=== PATIENT | female | born 1955 | race American Indian/Alaskan Native ===

== ENCOUNTER 2017-07-13 16:57 | Inpatient (IN) | payer OTHER ==
[2017-07-13] MEDS ORDERED: D50W (25GM) Syringe IV ONE ×5 (17:20→23:10)
[2017-07-13] MEDS ORDERED: ATROVENT IH ONE ×3 (17:30→19:59)
[2017-07-13] MEDS ORDERED: XOPENEX IH ONE ×3 (17:30→19:56)
[2017-07-13] MEDS ORDERED: LEVAQUIN PO ONE (17:31)
[2017-07-13 17:38] LABS: ISTAT Base Excess 1; ISTAT HCO3 28.3; ISTAT PCO2 63.7 (35-45); ISTAT PH 7.255 (7.35-7.45); ISTAT PO2 552 (80-105); ISTAT SO2 100; ISTAT TCO2 30
--- NOTE | 2017-07-13 17:39 | Emergency Department Report ---
ED Altered Mental Status HPI - General Stated Complaint: HYPERGLYCEMIC Time Seen by Provider: 07/13/17 17:30 Source: family, EMS Mode of arrival: Stretcher Limitations: Altered Mental Status - History of Present Illness Initial Comments: The patient is 62 years old female history of diabetes,asthma,coronary artery disease, status post CABG brought into the ER by EMS after patient was found unresponsive by the family. Family checked blood sugar and it was 34 and a started forcing fluids into the patient's, when the EMS get to the patient her blood glucose was 46, she received dextrose 50,she started responding. EMS report Diminished breath sounds on both sides, diffuse wheezing she was given albuterol treatments with little improvement. The patient arrived in the ER she is unresponsive with a blood sugars of 25 and dextrose 50 was given patient started working up and respond to commands so she started on BiPAP. but became unresponsive again and then patient intubated. MD Complaint: altered mental status, decreased responsiveness -: Sudden Severity: severe Consistency of Symptoms: constant Treatments Prior to Arrival: glucose, oxygen - Related Data Allergies Allergy/AdvReac Type Severity Reaction Status Date / Time Penicillins Allergy Anaphylaxis Verified 07/13/17 17:23 ED Review of Systems ROS: Stated complaint: HYPERGLYCEMIC Other details as noted in HPI Comment: Unobtainable due to pts medical conditions ED Past Medical Hx - Past Medical History Hx Hypertension: Yes Hx Heart Attack/AMI: Yes Hx Diabetes: Yes - Social History Smoking Status: Current Every Day Smoker Substance Use Type: None ED Physical Exam - General Limitations: Altered Mental Status General appearance: obtunded - Head Head exam: Present: atraumatic, normocephalic - Eye Eye exam: Present: normal appearance Pupils: Present: normal accommodation - ENT ENT exam: Present: normal exam, normal orophraynx - Neck Neck exam: Present: normal inspection. Absent: tenderness, meningismus - Respiratory Respiratory exam: Present: respiratory distress, wheezes, rales, rhonchi, decreased breath sounds, prolonged expiratory. Absent: stridor - Cardiovascular Cardiovascular Exam: Present: tachycardia - GI/Abdominal GI/Abdominal exam: Present: soft. Absent: distended, tenderness, guarding, rebound, mass, bruit, pulsatile mass - Extremities Exam Extremities exam: Present: normal inspection, normal capillary refill - Back Exam Back exam: Present: normal inspection. Absent: CVA tenderness (R), CVA tenderness (L) - Neurological Exam Neurological exam: Present: altered - Skin Skin exam: Present: warm, intact ED Course Vital Signs 07/13/17 07/13/17 07/13/17 17:22 17:23 17:30 Temperature Pulse Rate 113 H 107 H 105 H Pulse Rate [ Anterior Bilateral Throughout] Respiratory 17 13 Rate Respiratory Rate [Anterior Bilateral Throughout] Blood Pressure 102/69 102/69 Blood Pressure [Right] O2 Sat by Pulse 100 Oximetry 07/13/17 07/13/17 07/13/17 17:33 17:40 17:46 Temperature Pulse Rate 104 H 101 H 104 H Pulse Rate [ Anterior Bilateral Throughout] Respiratory 20 21 9 L Rate Respiratory Rate [Anterior Bilateral Throughout] Blood Pressure 116/74 116/74 116/74 Blood Pressure [Right] O2 Sat by Pulse 99 100 Oximetry 07/13/17 07/13/17 07/13/17 17:55 18:00 18:11 Temperature Pulse Rate 115 H 118 H Pulse Rate [ 101 H Anterior Bilateral Throughout] Respiratory 19 Rate Respiratory 21 Rate [Anterior Bilateral Throughout] Blood Pressure 116/74 228/101 Blood Pressure [Right] O2 Sat by Pulse 91 100 Oximetry 07/13/17 07/13/17 07/13/17 18:16 18:30 18:45 Temperature Pulse Rate 119 H 114 H 107 H Pulse Rate [ Anterior Bilateral Throughout] Respiratory 21 19 21 Rate Respiratory Rate [Anterior Bilateral Throughout] Blood Pressure 228/101 144/77 124/69 Blood Pressure [Right] O2 Sat by Pulse 100 100 100 Oximetry 07/13/17 07/13/17 07/13/17 18:50 19:04 19:15 Temperature Pulse Rate 106 H 123 H 104 H Pulse Rate [ Anterior Bilateral Throughout] Respiratory 20 20 20 Rate Respiratory Rate [Anterior Bilateral Throughout] Blood Pressure 116/74 120/75 Blood Pressure 124/69 [Right] O2 Sat by Pulse 100 100 Oximetry 07/13/17 07/13/17 07/13/17 19:30 19:45 20:00 Temperature 98.9 F Pulse Rate 102 H 101 H 113 H Pulse Rate [ Anterior Bilateral Throughout] Respiratory 19 20 16 Rate Respiratory Rate [Anterior Bilateral Throughout] Blood Pressure 125/78 123/79 123/79 Blood Pressure [Right] O2 Sat by Pulse 100 Oximetry 07/13/17 07/13/17 07/13/17 20:09 20:15 20:30 Temperature Pulse Rate 105 H 104 H 112 H Pulse Rate [ Anterior Bilateral Throughout] Respiratory 20 15 Rate Respiratory Rate [Anterior Bilateral Throughout] Blood Pressure 140/79 137/82 136/92 Blood Pressure [Right] O2 Sat by Pulse 100 100 Oximetry 07/13/17 07/13/17 07/13/17 20:45 21:00 21:15 Temperature Pulse Rate 103 H 110 H 104 H Pulse Rate [ Anterior Bilateral Throughout] Respiratory 20 21 19 Rate Respiratory Rate [Anterior Bilateral Throughout] Blood Pressure 132/90 152/92 150/89 Blood Pressure [Right] O2 Sat by Pulse 100 96 100 Oximetry 07/13/17 07/13/17 07/13/17 21:30 21:45 22:00 Temperature Pulse Rate 100 H 98 H 97 H Pulse Rate [ Anterior Bilateral Throughout] Respiratory 20 20 20 Rate Respiratory Rate [Anterior Bilateral Throughout] Blood Pressure 142/85 129/81 122/77 Blood Pressure [Right] O2 Sat by Pulse 100 Oximetry 07/13/17 07/13/17 07/13/17 22:15 22:30 22:45 Temperature Pulse Rate 98 H 98 H 97 H Pulse Rate [ Anterior Bilateral Throughout] Respiratory 20 20 20 Rate Respiratory Rate [Anterior Bilateral Throughout] Blood Pressure 118/77 117/80 122/80 Blood Pressure [Right] O2 Sat by Pulse Oximetry 07/13/17 07/13/17 07/13/17 23:00 23:15 23:30 Temperature Pulse Rate 96 H 91 H 94 H Pulse Rate [ Anterior Bilateral Throughout] Respiratory 20 20 20 Rate Respiratory Rate [Anterior Bilateral Throughout] Blood Pressure 119/81 136/80 146/87 Blood Pressure [Right] O2 Sat by Pulse 100 100 Oximetry 07/13/17 07/13/17 07/13/17 23:45 23:46 23:52 Temperature 98.7 F Pulse Rate 95 H 93 H Pulse Rate [ Anterior Bilateral Throughout] Respiratory 19 Rate Respiratory Rate [Anterior Bilateral Throughout] Blood Pressure 138/85 138/85 Blood Pressure [Right] O2 Sat by Pulse 100 100 Oximetry 07/14/17 00:00 Temperature Pulse Rate 95 H Pulse Rate [ Anterior Bilateral Throughout] Respiratory 20 Rate Respiratory Rate [Anterior Bilateral Throughout] Blood Pressure 136/85 Blood Pressure [Right] O2 Sat by Pulse Oximetry - Reevaluation(s) Reevaluation #1: 07/13/17 18:06 Patient became unresponsive with a blood sugar of 334 decision to intubate was made.intubation at 18:02 Reevaluation #2: 07/13/17 19:[address] Astudillo for admission - Intubation Time Out Performed: Yes Sedative: Etomidate Paralytic: Succinylcholine Laryngoscope: Alonso Size: 4 Assist Device Used: Bougie ET Tube Size: 8.5 Tube Secured Location: lips Tube Placement Confirmation: equal breath sounds bilat, no breath sounds over epi, confirmation by capnometr Patient Tolerated Procedure: well Intubation Complications: difficult intubation - Lab Data Result diagrams: 07/13/17 18:38 07/13/17 18:38 Lab Results 07/13/17 07/13/17 07/13/17 Range/Units 17:24 17:35 17:49 WBC (4.5-11.0) K/mm3 RBC (3.65-5.03) M/mm3 Hgb (10.1-14.3) gm/dl Hct (30.3-42.9) % MCV (79-97) fl MCH (28-32) pg MCHC (30-34) % RDW (13.2-15.2) % Plt Count (140-440) K/mm3 Add Manual Diff Total Counted Seg Neuts % (Manual) (40.0-70.0) % Band Neutrophils % % Lymphocytes % (Manual) (13.4-35.0) % Reactive Lymphs % (Man) % Monocytes % (Manual) (0.0-7.3) % Eosinophils % (Manual) (0.0-4.3) % Basophils % (Manual) (0.0-1.8) % Metamyelocytes % % Myelocytes % % Promyelocytes % % Blast Cells % % Nucleated RBC % Seg Neutrophils # Man (1.8-7.7) K/mm3 Band Neutrophils # K/mm3 Lymphocytes # (Manual) (1.2-5.4) K/mm3 Abs React Lymphs (Man) K/mm3 Monocytes # (Manual) (0.0-0.8) K/mm3 Eosinophils # (Manual) (0.0-0.4) K/mm3 Basophils # (Manual) (0.0-0.1) K/mm3 Metamyelocytes # K/mm3 Myelocytes # K/mm3 Promyelocytes # K/mm3 Blast Cells # K/mm3 WBC Morphology Hypersegmented Neuts Hyposegmented Neuts Hypogranular Neuts Smudge Cells Toxic Granulation Toxic Vacuolation Dohle Bodies Pelger-Huet Anomaly Martha Rods Platelet Estimate Clumped Platelets Plt Clumps, EDTA Large Platelets Giant Platelets Platelet Satelliting Plt Morphology Comment RBC Morphology Dimorphic RBCs Polychromasia Hypochromasia Poikilocytosis Anisocytosis Microcytosis Macrocytosis Spherocytes Pappenheimer Bodies Sickle Cells Target Cells Tear Drop Cells Ovalocytes Helmet Cells [place] Bodies [place] Lupe Cells Bite Cells Crenated Cell Elliptocytes Acanthocytes (Spur) Rouleaux Hemoglobin C Crystals Schistocytes Malaria parasites Daniel Bodies Hem Pathologist Commnt PT (12.2-14.9) Sec. INR (0.87-1.13) APTT (24.2-36.6) Sec. D-Dimer (0-234) ng/mlDDU POC ABG pH 7.255 L (7.35-7.45) POC ABG pCO2 63.7 H (35-45) POC ABG pO2 552 H (80-105) POC ABG HCO3 28.3 POC ABG Total CO2 30 POC ABG O2 Sat 100 POC ABG Base Excess 1 FiO2 100 % Sodium (137-145) mmol/L Potassium (3.6-5.0) mmol/L Chloride (98-107) mmol/L Carbon Dioxide (22-30) mmol/L Anion Gap mmol/L BUN (7-17) mg/dL Creatinine (0.7-1.2) mg/dL Estimated GFR ml/min BUN/Creatinine Ratio % Glucose (65-100) mg/dL POC Glucose < 40 L 334 H (70-105) Lactic Acid (0.7-2.0) mmol/L Calcium (8.4-10.2) mg/dL Total Bilirubin (0.1-1.2) mg/dL AST (5-40) units/L ALT (7-56) units/L Alkaline Phosphatase (35-129) units/L Troponin T (0.00-0.029) ng/mL Total Protein (6.3-8.2) g/dL Albumin (3.9-5) g/dL Albumin/Globulin Ratio % Urine Color (Yellow) Urine Turbidity (Clear) Urine pH (5.0-7.0) Ur Specific [place] (1.003-1.030) Urine Protein (Negative) mg/dL Urine Glucose (UA) (Negative) mg/dL Urine Ketones (Negative) mg/dL Urine Blood (Negative) Urine Nitrite (Negative) Urine Bilirubin (Negative) Urine Urobilinogen (<2.0) mg/dL Ur Leukocyte Esterase (Negative) Urine WBC (Auto) (0.0-6.0) /HPF Urine RBC (Auto) (0.0-6.0) /HPF 07/13/17 07/13/17 07/13/17 Range/Units 18:30 18:30 18:38 WBC (4.5-11.0) K/mm3 RBC (3.65-5.03) M/mm3 Hgb (10.1-14.3) gm/dl Hct (30.3-42.9) % MCV (79-97) fl MCH (28-32) pg MCHC (30-34) % RDW (13.2-15.2) % Plt Count (140-440) K/mm3 Add Manual Diff Total Counted Seg Neuts % (Manual) (40.0-70.0) % Band Neutrophils % % Lymphocytes % (Manual) (13.4-35.0) % Reactive Lymphs % (Man) % Monocytes % (Manual) (0.0-7.3) % Eosinophils % (Manual) (0.0-4.3) % Basophils % (Manual) (0.0-1.8) % Metamyelocytes % % Myelocytes % % Promyelocytes % % Blast Cells % % Nucleated RBC % Seg Neutrophils # Man (1.8-7.7) K/mm3 Band Neutrophils # K/mm3 Lymphocytes # (Manual) (1.2-5.4) K/mm3 Abs React Lymphs (Man) K/mm3 Monocytes # (Manual) (0.0-0.8) K/mm3 Eosinophils # (Manual) (0.0-0.4) K/mm3 Basophils # (Manual) (0.0-0.1) K/mm3 Metamyelocytes # K/mm3 Myelocytes # K/mm3 Promyelocytes # K/mm3 Blast Cells # K/mm3 WBC Morphology Hypersegmented Neuts Hyposegmented Neuts Hypogranular Neuts Smudge Cells Toxic Granulation Toxic Vacuolation Dohle Bodies Pelger-Huet Anomaly Martha Rods Platelet Estimate Clumped Platelets Plt Clumps, EDTA Large Platelets Giant Platelets Platelet Satelliting Plt Morphology Comment RBC Morphology Dimorphic RBCs Polychromasia Hypochromasia Poikilocytosis Anisocytosis Microcytosis Macrocytosis Spherocytes Pappenheimer Bodies Sickle Cells Target Cells Tear Drop Cells Ovalocytes Helmet Cells [place] Bodies [place] Lupe Cells Bite Cells Crenated Cell Elliptocytes Acanthocytes (Spur) Rouleaux Hemoglobin C Crystals Schistocytes Malaria parasites Daniel Bodies Hem Pathologist Commnt PT (12.2-14.9) Sec. INR (0.87-1.13) APTT (24.2-36.6) Sec. D-Dimer 424.00 H (0-234) ng/mlDDU POC ABG pH (7.35-7.45) POC ABG pCO2 (35-45) POC ABG pO2 (80-105) POC ABG HCO3 POC ABG Total CO2 POC ABG O2 Sat POC ABG Base Excess FiO2 % Sodium 140 (137-145) mmol/L Potassium 4.5 (3.6-5.0) mmol/L Chloride 101.0 (98-107) mmol/L Carbon Dioxide 23 (22-30) mmol/L Anion Gap 21 mmol/L BUN 35 H (7-17) mg/dL Creatinine 1.4 H (0.7-1.2) mg/dL Estimated GFR 46 ml/min BUN/Creatinine Ratio 25.00 % Glucose 160 H (65-100) mg/dL POC Glucose (70-105) Lactic Acid (0.7-2.0) mmol/L Calcium 9.1 (8.4-10.2) mg/dL Total Bilirubin 0.70 (0.1-1.2) mg/dL AST 294 H (5-40) units/L ALT 116 H (7-56) units/L Alkaline Phosphatase 86 (35-129) units/L Troponin T (0.00-0.029) ng/mL Total Protein 6.1 L (6.3-8.2) g/dL Albumin 3.7 L (3.9-5) g/dL Albumin/Globulin Ratio 1.5 % Urine Color Yellow (Yellow) Urine Turbidity Clear (Clear) Urine pH 5.0 (5.0-7.0) Ur Specific [place] 1.015 (1.003-1.030) Urine Protein 30 mg/dl (Negative) mg/dL Urine Glucose (UA) >=500 (Negative) mg/dL Urine Ketones Neg (Negative) mg/dL Urine Blood Sm (Negative) Urine Nitrite Neg (Negative) Urine Bilirubin Neg (Negative) Urine Urobilinogen < 2.0 (<2.0) mg/dL Ur Leukocyte Esterase Neg (Negative) Urine WBC (Auto) 1.0 (0.0-6.0) /HPF Urine RBC (Auto) < 1.0 (0.0-6.0) /HPF 07/13/17 07/13/17 07/13/17 Range/Units 18:38 18:38 18:38 WBC 18.4 H (4.5-11.0) K/mm3 RBC 4.30 (3.65-5.03) M/mm3 Hgb 11.4 (10.1-14.3) gm/dl Hct 37.5 (30.3-42.9) % MCV 87 (79-97) fl MCH 27 L (28-32) pg MCHC 30 (30-34) % RDW 18.8 H (13.2-15.2) % Plt Count 162 (140-440) K/mm3 Add Manual Diff Complete Total Counted 100 Seg Neuts % (Manual) 84.0 H (40.0-70.0) % Band Neutrophils % 6.0 % Lymphocytes % (Manual) 4.0 L (13.4-35.0) % Reactive Lymphs % (Man) 0 % Monocytes % (Manual) 6.0 (0.0-7.3) % Eosinophils % (Manual) 0 (0.0-4.3) % Basophils % (Manual) 0 (0.0-1.8) % Metamyelocytes % 0 % Myelocytes % 0 % Promyelocytes % 0 % Blast Cells % 0 % Nucleated RBC % Not Reportable Seg Neutrophils # Man 15.5 H (1.8-7.7) K/mm3 Band Neutrophils # 1.1 K/mm3 Lymphocytes # (Manual) 0.7 L (1.2-5.4) K/mm3 Abs React Lymphs (Man) 0.0 K/mm3 Monocytes # (Manual) 1.1 H (0.0-0.8) K/mm3 Eosinophils # (Manual) 0.0 (0.0-0.4) K/mm3 Basophils # (Manual) 0.0 (0.0-0.1) K/mm3 Metamyelocytes # 0.0 K/mm3 Myelocytes # 0.0 K/mm3 Promyelocytes # 0.0 K/mm3 Blast Cells # 0.0 K/mm3 WBC Morphology Not Reportable Hypersegmented Neuts Not Reportable Hyposegmented Neuts Not Reportable Hypogranular Neuts Not Reportable Smudge Cells Not Reportable Toxic Granulation Not Reportable Toxic Vacuolation Not Reportable Dohle Bodies Not Reportable Pelger-Huet Anomaly Not Reportable Martha Rods Not Reportable Platelet Estimate Consistent w auto Clumped Platelets Not Reportable Plt Clumps, EDTA Not Reportable Large Platelets Not Reportable Giant Platelets Not Reportable Platelet Satelliting Not Reportable Plt Morphology Comment Not Reportable RBC Morphology Not Reportable Dimorphic RBCs Not Reportable Polychromasia Not Reportable Hypochromasia Not Reportable Poikilocytosis Not Reportable Anisocytosis 1+ Microcytosis Not Reportable Macrocytosis Not Reportable Spherocytes Not Reportable Pappenheimer Bodies Not Reportable Sickle Cells Not Reportable Target Cells Not Reportable Tear Drop Cells 1+ Ovalocytes 1+ Helmet Cells Not Reportable [place] Bodies Not Reportable [place] Rings Not Reportable [place] Cells Not Reportable Bite Cells Not Reportable Crenated Cell Not Reportable Elliptocytes Not Reportable Acanthocytes (Spur) Not Reportable Rouleaux Not Reportable Hemoglobin C Crystals Not Reportable Schistocytes Not Reportable Malaria parasites Not Reportable Daniel Bodies Not Reportable Hem Pathologist Commnt No PT 12.8 (12.2-14.9) Sec. INR 0.92 (0.87-1.13) APTT < 20.0 L (24.2-36.6) Sec. D-Dimer (0-234) ng/mlDDU POC ABG pH (7.35-7.45) POC ABG pCO2 (35-45) POC ABG pO2 (80-105) POC ABG HCO3 POC ABG Total CO2 POC ABG O2 Sat POC ABG Base Excess FiO2 % Sodium (137-145) mmol/L Potassium (3.6-5.0) mmol/L Chloride (98-107) mmol/L Carbon Dioxide (22-30) mmol/L Anion Gap mmol/L BUN (7-17) mg/dL Creatinine (0.7-1.2) mg/dL Estimated GFR ml/min BUN/Creatinine Ratio % Glucose (65-100) mg/dL POC Glucose (70-105) Lactic Acid 1.70 (0.7-2.0) mmol/L Calcium (8.4-10.2) mg/dL Total Bilirubin (0.1-1.2) mg/dL AST (5-40) units/L ALT (7-56) units/L Alkaline Phosphatase (35-129) units/L Troponin T (0.00-0.029) ng/mL Total Protein (6.3-8.2) g/dL Albumin (3.9-5) g/dL Albumin/Globulin Ratio % Urine Color (Yellow) Urine Turbidity (Clear) Urine pH (5.0-7.0) Ur Specific [place] (1.003-1.030) Urine Protein (Negative) mg/dL Urine Glucose (UA) (Negative) mg/dL Urine Ketones (Negative) mg/dL Urine Blood (Negative) Urine Nitrite (Negative) Urine Bilirubin (Negative) Urine Urobilinogen (<2.0) mg/dL Ur Leukocyte Esterase (Negative) Urine WBC (Auto) (0.0-6.0) /HPF Urine RBC (Auto) (0.0-6.0) /HPF 07/13/17 07/13/17 07/13/17 Range/Units 18:38 18:44 20:27 WBC (4.5-11.0) K/mm3 RBC (3.65-5.03) M/mm3 Hgb (10.1-14.3) gm/dl Hct (30.3-42.9) % MCV (79-97) fl MCH (28-32) pg MCHC (30-34) % RDW (13.2-15.2) % Plt Count (140-440) K/mm3 Add Manual Diff Total Counted Seg Neuts % (Manual) (40.0-70.0) % Band Neutrophils % % Lymphocytes % (Manual) (13.4-35.0) % Reactive Lymphs % (Man) % Monocytes % (Manual) (0.0-7.3) % Eosinophils % (Manual) (0.0-4.3) % Basophils % (Manual) (0.0-1.8) % Metamyelocytes % % Myelocytes % % Promyelocytes % % Blast Cells % % Nucleated RBC % Seg Neutrophils # Man (1.8-7.7) K/mm3 Band Neutrophils # K/mm3 Lymphocytes # (Manual) (1.2-5.4) K/mm3 Abs React Lymphs (Man) K/mm3 Monocytes # (Manual) (0.0-0.8) K/mm3 Eosinophils # (Manual) (0.0-0.4) K/mm3 Basophils # (Manual) (0.0-0.1) K/mm3 Metamyelocytes # K/mm3 Myelocytes # K/mm3 Promyelocytes # K/mm3 Blast Cells # K/mm3 WBC Morphology Hypersegmented Neuts Hyposegmented Neuts Hypogranular Neuts Smudge Cells Toxic Granulation Toxic Vacuolation Dohle Bodies Pelger-Huet Anomaly Martha Rods Platelet Estimate Clumped Platelets Plt Clumps, EDTA Large Platelets Giant Platelets Platelet Satelliting Plt Morphology Comment RBC Morphology Dimorphic RBCs Polychromasia Hypochromasia Poikilocytosis Anisocytosis Microcytosis Macrocytosis Spherocytes Pappenheimer Bodies Sickle Cells Target Cells Tear Drop Cells Ovalocytes Helmet Cells [place] Bodies [place] Cells Bite Cells Crenated Cell Elliptocytes Acanthocytes (Spur) Rouleaux Hemoglobin C Crystals Schistocytes Malaria parasites Daniel Bodies Hem Pathologist Commnt PT (12.2-14.9) Sec. INR (0.87-1.13) APTT (24.2-36.6) Sec. D-Dimer (0-234) ng/mlDDU POC ABG pH 7.250 L (7.35-7.45) POC ABG pCO2 65.7 H (35-45) POC ABG pO2 575 H (80-105) POC ABG HCO3 28.8 POC ABG Total CO2 31 POC ABG O2 Sat 100 POC ABG Base Excess 2 FiO2 100 % Sodium (137-145) mmol/L Potassium (3.6-5.0) mmol/L Chloride (98-107) mmol/L Carbon Dioxide (22-30) mmol/L Anion Gap mmol/L BUN (7-17) mg/dL Creatinine (0.7-1.2) mg/dL Estimated GFR ml/min BUN/Creatinine Ratio % Glucose (65-100) mg/dL POC Glucose 175 H (70-105) Lactic Acid (0.7-2.0) mmol/L Calcium (8.4-10.2) mg/dL Total Bilirubin (0.1-1.2) mg/dL AST (5-40) units/L ALT (7-56) units/L Alkaline Phosphatase (35-129) units/L Troponin T 0.019 (0.00-0.029) ng/mL Total Protein (6.3-8.2) g/dL Albumin (3.9-5) g/dL Albumin/Globulin Ratio % Urine Color (Yellow) Urine Turbidity (Clear) Urine pH (5.0-7.0) Ur Specific [place] (1.003-1.030) Urine Protein (Negative) mg/dL Urine Glucose (UA) (Negative) mg/dL Urine Ketones (Negative) mg/dL Urine Blood (Negative) Urine Nitrite (Negative) Urine Bilirubin (Negative) Urine Urobilinogen (<2.0) mg/dL Ur Leukocyte Esterase (Negative) Urine WBC (Auto) (0.0-6.0) /HPF Urine RBC (Auto) (0.0-6.0) /HPF 07/13/17 07/13/17 07/13/17 Range/Units 21:04 23:00 23:32 WBC (4.5-11.0) K/mm3 RBC (3.65-5.03) M/mm3 Hgb (10.1-14.3) gm/dl Hct (30.3-42.9) % MCV (79-97) fl MCH (28-32) pg MCHC (30-34) % RDW (13.2-15.2) % Plt Count (140-440) K/mm3 Add Manual Diff Total Counted Seg Neuts % (Manual) (40.0-70.0) % Band Neutrophils % % Lymphocytes % (Manual) (13.4-35.0) % Reactive Lymphs % (Man) % Monocytes % (Manual) (0.0-7.3) % Eosinophils % (Manual) (0.0-4.3) % Basophils % (Manual) (0.0-1.8) % Metamyelocytes % % Myelocytes % % Promyelocytes % % Blast Cells % % Nucleated RBC % Seg Neutrophils # Man (1.8-7.7) K/mm3 Band Neutrophils # K/mm3 Lymphocytes # (Manual) (1.2-5.4) K/mm3 Abs React Lymphs (Man) K/mm3 Monocytes # (Manual) (0.0-0.8) K/mm3 Eosinophils # (Manual) (0.0-0.4) K/mm3 Basophils # (Manual) (0.0-0.1) K/mm3 Metamyelocytes # K/mm3 Myelocytes # K/mm3 Promyelocytes # K/mm3 Blast Cells # K/mm3 WBC Morphology Hypersegmented Neuts Hyposegmented Neuts Hypogranular Neuts Smudge Cells Toxic Granulation Toxic Vacuolation Dohle Bodies Pelger-Huet Anomaly Martha Rods Platelet Estimate Clumped Platelets Plt Clumps, EDTA Large Platelets Giant Platelets Platelet Satelliting Plt Morphology Comment RBC Morphology Dimorphic RBCs Polychromasia Hypochromasia Poikilocytosis Anisocytosis Microcytosis Macrocytosis Spherocytes Pappenheimer Bodies Sickle Cells Target Cells Tear Drop Cells Ovalocytes Helmet Cells [place] Bodies [place] Cells Bite Cells Crenated Cell Elliptocytes Acanthocytes (Spur) Rouleaux Hemoglobin C Crystals Schistocytes Malaria parasites Daniel Bodies Hem Pathologist Commnt PT (12.2-14.9) Sec. INR (0.87-1.13) APTT (24.2-36.6) Sec. D-Dimer (0-234) ng/mlDDU POC ABG pH (7.35-7.45) POC ABG pCO2 (35-45) POC ABG pO2 (80-105) POC ABG HCO3 POC ABG Total CO2 POC ABG O2 Sat POC ABG Base Excess FiO2 % Sodium (137-145) mmol/L Potassium (3.6-5.0) mmol/L Chloride (98-107) mmol/L Carbon Dioxide (22-30) mmol/L Anion Gap mmol/L BUN (7-17) mg/dL Creatinine (0.7-1.2) mg/dL Estimated GFR ml/min BUN/Creatinine Ratio % Glucose (65-100) mg/dL POC Glucose 117 H 83 (70-105) Lactic Acid 2.90 H* (0.7-2.0) mmol/L Calcium (8.4-10.2) mg/dL Total Bilirubin (0.1-1.2) mg/dL AST (5-40) units/L ALT (7-56) units/L Alkaline Phosphatase (35-129) units/L Troponin T (0.00-0.029) ng/mL Total Protein (6.3-8.2) g/dL Albumin (3.9-5) g/dL Albumin/Globulin Ratio % Urine Color (Yellow) Urine Turbidity (Clear) Urine pH (5.0-7.0) Ur Specific [place] (1.003-1.030) Urine Protein (Negative) mg/dL Urine Glucose (UA) (Negative) mg/dL Urine Ketones (Negative) mg/dL Urine Blood (Negative) Urine Nitrite (Negative) Urine Bilirubin (Negative) Urine Urobilinogen (<2.0) mg/dL Ur Leukocyte Esterase (Negative) Urine WBC (Auto) (0.0-6.0) /HPF Urine RBC (Auto) (0.0-6.0) /HPF - EKG Data -: EKG Interpreted by Me EKG shows normal: sinus rhythm Rate: tachycardia Interpretation: no acute changes - Radiology Data Radiology results: image reviewed interpreted by me: Chest x-ray showed no consolidation noted pneumothorax tube in place just above the graciela - Medical Decision Making Patient is intubated due to acute respiratory failure, rule out mid to ICU. Critical Care Time: Yes (spent at bedtime not including intubation) Critical care time in (mins) excluding proc time.: 62 Critical care attestation.: If time is entered above; I have spent that time in minutes in the direct care of this critically ill patient, excluding procedure time. ED Disposition Clinical Impression: Acute respiratory failure, Altered mental status Disposition: [id number] OP ADMIT IP TO THIS HOSP Is pt being admited?: Yes Condition: Stable Referrals: PRIMARY CARE,MD [Primary Care Provider] - 3-5 Days
[2017-07-13] MEDS ORDERED: ZEMURON IV ONE (18:05)
[2017-07-13] MEDS ORDERED: AMIDATE IV ONE (18:05)
[2017-07-13] MEDS ORDERED: QUELICIN ONE (18:05)
--- NOTE | 2017-07-13 18:18 | Event Note ---
Date: 07/13/17 Called by respiratory therapist for assistance intubating patient in the ED. Patient in respiratory failure, attempted intubations by ED physician. Patient was being ventilated via bag/mask on my arrival. O2 sat around 88-89%. Direct laryngoscopy was performed with carter 3 blade. Oropharynx suctioned. Cricoid pressure applied showing grade 2 view of vocal cords with fair amount of edema and bloody secretions to posterior oropharynx. Bougie was passed thorough vocal cords and endotracheal tube was inserted over bougie. Tube passed easily with no obstruction. Bougie removed and patient ventilated using ambubag to the tube. good color change with CO2 detector and bilateral breath sounds were noted. O2 sat increased to 100% post intubation.
[2017-07-13 19:06] LABS: Bilirubin,Urine NEG (Negative); Blood,Urine SM (Negative); Ketones,Urine NEG (Negative); Leukocyte Esterase,Urine NEG (Negative); Nitrite,Urine NEG (Negative); RBC,Urine < 1.0 /HPF (0.0-6.0); Urobilinogen,Urine < 2.0 mg/dL (<2.0)
[2017-07-13 19:14] LABS: Mean Corpuscular HGB Conc 30 % (30-34); Mean Corpuscular Hemoglobin 27 pg (28-32); Mean Corpuscular Volume 87 fl (79-97); Platelet Count 162 K/mm3 (140-440); Red Cell Distribution Width 18.8 % (13.2-15.2); White Blood Count 18.4 K/mm3 (4.5-11.0)
[2017-07-13 19:17] LABS: Hematocrit 37.5 % (30.3-42.9); Hemoglobin 11.4 gm/dl (10.1-14.3)
[2017-07-13 19:23] LABS: Albumin 3.7 g/dL (3.9-5); Albumin/Globulin Ratio 1.5 %; Bilirubin,Total 0.7 mg/dL (0.1-1.2); Calcium 9.1 mg/dL (8.4-10.2); INR 0.92 (0.87-1.13); Total Protein 6.1 g/dL (6.3-8.2)
[2017-07-13 19:24] LABS: Partial Thromboplastin Time < 20.0 Sec. (24.2-36.6); Potassium 4.5 mmol/L (3.6-5.0)
[2017-07-13] MEDS ORDERED: LEVAQUIN 750MG/150ML 750 MG/150 ML BAG IV ONE (19:47)
[2017-07-13 20:00] LABS: Basophils % (Manual) 0 % (0.0-1.8); Blastocytes % (Manual) 0 %; Eosinophils % (Manual) 0 % (0.0-4.3)
[2017-07-13] MEDS ORDERED: VANCOMYCIN/NS 1 GM/250 ML 1 GM/250 ML BAG IV ONE (20:00)
[2017-07-13 20:02] LABS: Anisocytosis 1+; Diff Status Complete; Ovalocytes 1+; Platelet Estimate Consistent w Auto; Tear Drop Cells 1+
--- NOTE | 2017-07-13 20:02 | History and Physical Report ---
History of Present Illness Chief complaint: Unresponsive, confused History of present illness: 62 YO Female with HTN, UT, DM, CAD/SP CABG, Metabolic Syndrome, Nicotine Dependence presents to ED for evaluation. Pt unable to provide history. Pt history provided by family. Pt was found down and unresponsive by the family. EMS notified, and upon arrival pt found to be unresponsive and hypoclycemic with blood glucose of 46, and in respiratory distress. Pt given D50 with minimal improvement. Pt transported to [facility]. Pt seen and evaluated in ED and found to have Sepsis, and Respiratory failure and unable to protect airway. Pt intubated and placed on vent support, and treated IAW sepsis protocol. Past History Past Medical History: acute UT, CAD, diabetes, hypertension Past Surgical History: CABG Social history: , lives with family, smoking. denies: alcohol abuse, prescription drug abuse, IV drug use Family history: diabetes, hypertension Medications and Allergies Allergies Allergy/AdvReac Type Severity Reaction Status Date / Time Penicillins Allergy Anaphylaxis Verified 07/13/17 17:23 Active Meds: Active Medications Levofloxacin/Dextrose (Levaquin 750mg/150ml) 750 mg in 150 mls @ 100 mls/hr IV ONCE ONE Stop: 07/13/17 21:16 Vancomycin HCl (Vancomycin/Ns 1 Gm/250 Ml) 1 gm in 250 mls @ 167.007 mls/hr IV ONCE ONE PRN Reason: Protocol Stop: 07/13/17 21:29 Review of Systems ROS unobtainable: due to mental status Exam - Constitutional Vitals: Temp Pulse Resp BP Pulse Ox 101 H 20 123/79 100 07/13/17 19:45 07/13/17 19:45 07/13/17 19:45 07/13/17 19:04 General appearance: Present: severe distress - EENT Eyes: Present: PERRL ENT: hearing intact, clear oral mucosa - Neck Neck: Present: supple, normal ROM - Respiratory Respiratory effort: labored Respiratory: bilateral: diminished, rhonchi - Cardiovascular Rhythm: regular Heart Sounds: Present: S1 & S2 - Extremities Extremities: pulses symmetrical, No edema Extremity abnormal: edema Peripheral Pulses: abnormal (Capillary Refill: 3.5 seconds) - Abdominal General gastrointestinal: Present: soft, non-tender, non-distended, normal bowel sounds Female genitourinary: Present: normal - Integumentary Integumentary: Present: clear, dry, clammy, decreased turgor - Musculoskeletal Musculoskeletal: generalized weakness - Psychiatric Psychiatric: no intact judgment & insight, no memory intact - Neurologic Neurologic: no gait normal Results - Labs CBC & Chem 7: 07/13/17 18:38 07/13/17 18:38 Labs: Abnormal lab results 07/13/17 07/13/17 07/13/17 Range/Units 17:24 17:35 17:49 WBC (4.5-11.0) K/mm3 MCH (28-32) pg RDW (13.2-15.2) % APTT (24.2-36.6) Sec. POC ABG pH 7.255 L (7.35-7.45) POC ABG pCO2 63.7 H (35-45) POC ABG pO2 552 H (80-105) BUN (7-17) mg/dL Creatinine (0.7-1.2) mg/dL Glucose (65-100) mg/dL POC Glucose < 40 L 334 H (70-105) AST (5-40) units/L ALT (7-56) units/L Total Protein (6.3-8.2) g/dL Albumin (3.9-5) g/dL 07/13/17 07/13/17 07/13/17 Range/Units 18:38 18:38 18:38 WBC 18.4 H (4.5-11.0) K/mm3 MCH 27 L (28-32) pg RDW 18.8 H (13.2-15.2) % APTT < 20.0 L (24.2-36.6) Sec. POC ABG pH (7.35-7.45) POC ABG pCO2 (35-45) POC ABG pO2 (80-105) BUN 35 H (7-17) mg/dL Creatinine 1.4 H (0.7-1.2) mg/dL Glucose 160 H (65-100) mg/dL POC Glucose (70-105) AST 294 H (5-40) units/L ALT 116 H (7-56) units/L Total Protein 6.1 L (6.3-8.2) g/dL Albumin 3.7 L (3.9-5) g/dL 07/13/17 Range/Units 18:44 WBC (4.5-11.0) K/mm3 MCH (28-32) pg RDW (13.2-15.2) % APTT (24.2-36.6) Sec. POC ABG pH (7.35-7.45) POC ABG pCO2 (35-45) POC ABG pO2 (80-105) BUN (7-17) mg/dL Creatinine (0.7-1.2) mg/dL Glucose (65-100) mg/dL POC Glucose 175 H (70-105) AST (5-40) units/L ALT (7-56) units/L Total Protein (6.3-8.2) g/dL Albumin (3.9-5) g/dL Assessment and Plan - Patient Problems (1) Sepsis Current Visit: Yes Status: Acute Qualifiers: Sepsis type: S Plan to address problem: IV abx, serial lactic acid levels, monitor uop q shift, IV pressor support as clinically indicated, blood cultures, The high probability of a clinically significant, sudden or life threatening deterioration of the [Cardiac, pulmonary, renal] system(s) required my full and direct attention, intervention and personal management. The aggregate critical care time was [69] minutes. This time is in addition to time spent performing reported procedures but includes the following: [x] Data Review and interpretation [x] Patient assessment and monitoring of vital signs [x] Documentation [x] Medication orders and management (2) ARF (acute renal failure) Current Visit: Yes Status: Acute Qualifiers: Acute renal failure type: A Plan to address problem: IVF resuscitation, monitor uop q shift (3) Encephalopathy acute Current Visit: Yes Status: Acute Plan to address problem: treat sepsis, suspect toxic encephalopathy, supportive care. (4) Diabetes Current Visit: Yes Status: Acute Qualifiers: Diabetes mellitus type: D Diabetes mellitus complication status: D Diabetes mellitus complication detail: D Diabetic retinopathy severity: D Proliferative retinopathy type: P Diabetes mellitus macular edema: D Diabetes mellitus penitentiary insulin use: D Laterality: L Chronic kidney disease stage: C Plan to address problem: ADA diet, accu check, insulin ssi (5) HTN (hypertension) Current Visit: Yes Status: Acute Qualifiers: Hypertension type: H Plan to address problem: monitor bp w shift, (6) Acute respiratory failure Current Visit: Yes Status: Acute Qualifiers: Respiratory failure complication: R Plan to address problem: Pulmonary consulted, wean vent as tolerated, Daily SBT, supportive care, ABG in am, (7) DVT prophylaxis Current Visit: Yes Status: Acute
[2017-07-13] MEDS ORDERED: NACL 0.9% 1000 ML IV ONE (20:05)
[2017-07-13] MEDS ORDERED: MILK OF MAGNESIA PO PRN (20:05)
[2017-07-13] MEDS ORDERED: ALUM-MAG HYDROX-SIMETH 200-200-20MG/5ML PO PRN (20:05)
[2017-07-13] MEDS ORDERED: DULCOLAX PR PRN (20:05)
[2017-07-13] MEDS ORDERED: DIPRIVAN 10 MG/ML 1,000 MG/100 ML BOTTLE IV ONE (20:43)
[2017-07-13] MEDS: DIPRIVAN 10 MG/ML 1,000 MG/100 ML BOTTLE IV SCH (21:00)
[2017-07-13 21:41] LABS: ISTAT Base Excess 2; ISTAT HCO3 28.8; ISTAT PCO2 65.7 (35-45); ISTAT PO2 575 (80-105); ISTAT SO2 100; ISTAT TCO2 31
[2017-07-13] MEDS ORDERED: DIPRIVAN 10 MG/ML 1,000 MG/100 ML BOTTLE IV SCH (22:00)
[2017-07-13] MEDS ORDERED: D10W 1,000 ML IV SCH (23:45)
[2017-07-14] MEDS: DIPRIVAN 10 MG/ML 1,000 MG/100 ML BOTTLE IV SCH ×5 (04:35→22:20)
[2017-07-14 05:32] LABS: ISTAT Base Excess 4; ISTAT HCO3 28.5; ISTAT PCO2 46.9 (35-45); ISTAT PH 7.392 (7.35-7.45); ISTAT PO2 301 (80-105); ISTAT SO2 100; ISTAT TCO2 30
--- NOTE | 2017-07-14 08:15 | XRay Report ---
AP CHEST: HISTORY: Dyspnea No comparison. An endotracheal tube terminates 3.4 cm superior to the graciela. A nasogastric tube is followed to the mid stomach. The lungs are clear. The heart size and pulmonary vascularity are borderline. No acute process is noted. IMPRESSION: No acute cardiopulmonary process.
--- NOTE | 2017-07-14 11:15 | Progress Note ---
Assessment and Plan Assessment and plan: Patient is a 62-year-old woman with a history of coronary artery disease s/p CABG, hypertension, diabetes mellitus, dyslipidemia and tobacco dependency who presents with altered mental status after being found unresponsive by family. Patient was found to have a Blood glucose was 46. Chest x-ray read as no acute findings. Urinalysis is not indicative of UTI. She was eventually intubated with the patient as follows: Emergency Provider: RITCHIE HU Date: , "Called by respiratory therapist for assistance intubating patient in the ED. Patient in respiratory failure, attempted intubations by ED physician. Patient was being ventilated via bag/mask on my arrival. O2 sat around 88-89%. Direct laryngoscopy was performed with carter 3 blade. Oropharynx suctioned. Cricoid pressure applied showing grade 2 view of vocal cords with fair amount of edema and bloody secretions to posterior oropharynx. Bougie was passed thorough vocal cords and endotracheal tube was inserted over bougie. Tube passed easily with no obstruction. Bougie removed and patient ventilated using ambubag to the tube. good color change with CO2 detector and bilateral breath sounds were noted. O2 sat increased to 100% post intubation" per anesthesiologist Dr. Deion Rodas -Acute hypoxic respiratory failure s/p Intubation most likely due to hypoglycemia coma, no prior history in our EMR, I called the spouse Mr. Johnny uTrner but the number in our EMR in nonfunctional, : Consulted Dr. Salazar -Hypoglycemic coma, resolving: Change dextrose 10% IV fluids -Acute metabolic encephalopathy, herhome medications does not list any specific diabetes mellitus medication; therefore, I don't know what she took -Acute respiratory acidosis: Continue mechanical ventilator, follow-up ABGs -Acute renal failure most likely due to ATN with hypotension, without a known baseline: Treat with fluid resuscitation,, she has history of coronary artery disease I do not know if she has a history of CHF; therefore, carefully monitor for fluid overload -Mild transaminitis likely due to shock liver/hypotension, should improve with blood pressure -SIRS without sepsis, no source at this particular time -DVT prophylaxis: Added subcutaneous heparin Full code The high probability of a clinically significant, sudden or life threatening deterioration of the [] system(s) required my full and direct attention, intervention and personal management. The aggregate critical care time was [42] minutes. This time is in addition to time spent performing reported procedures but includes the following: [] Data Review and interpretation [] Patient assessment and monitoring of vital signs [] Documentation [] Medication orders and management History Interval history: Patient was seen and examined. Follow-up on current diagnosis/resp failure. Intubated and sedated on Diprivan. She has left heel breakdown. Hospitalist Physical - Physical exam Narrative exam: GEN: Ill-appearing, intubated and sedated HEENT: NCAT, pupils reactive. No jaundice, Ett in place, NECK: supple, no adenopathy, no thyromegaly, no JVD CVS/HEART: RRR, NORMAL S1S2, NO JVD, pulses present bilaterally CHEST/LUNGS: Symmetrical chest expansion, good air entry bilaterally GI/Abdomen: soft, NTND, good bowel sounds, no guarding or rebound /Bladder: no suprapubic tenderness, no CVA or paraspinal tenderness EXT/Skin: no significant edema, no obvious rash MSK: spontaneous movement x 4 Neuro: CN 2-12 grossly intact but sedated Psych: Sedated - Constitutional Vitals: Temp Pulse Resp BP Pulse Ox 99.7 F H 109 H 20 178/94 96 07/14/17 11:07 07/14/17 11:07 07/14/17 11:07 07/14/17 11:07 07/14/17 11:07 Results - Labs CBC & Chem 7: 07/13/17 18:38 07/13/17 18:38 Labs: Laboratory Last Values WBC 18.4 K/mm3 (4.5-11.0) H 07/13/17 18:38 RBC 4.30 M/mm3 (3.65-5.03) 07/13/17 18:38 Hgb 11.4 gm/dl (10.1-14.3) 07/13/17 18:38 Hct 37.5 % (30.3-42.9) 07/13/17 18:38 MCV 87 fl (79-97) 07/13/17 18:38 MCH 27 pg (28-32) L 07/13/17 18:38 MCHC 30 % (30-34) 07/13/17 18:38 RDW 18.8 % (13.2-15.2) H 07/13/17 18:38 Plt Count 162 K/mm3 (140-440) 07/13/17 18:38 Add Manual Diff Complete 07/13/17 18:38 Total Counted 100 07/13/17 18:38 Seg Neuts % (Manual) 84.0 % (40.0-70.0) H 07/13/17 18:38 Band Neutrophils % 6.0 % 07/13/17 18:38 Lymphocytes % (Manual) 4.0 % (13.4-35.0) L 07/13/17 18:38 Reactive Lymphs % (Man) 0 % 07/13/17 18:38 Monocytes % (Manual) 6.0 % (0.0-7.3) 07/13/17 18:38 Eosinophils % (Manual) 0 % (0.0-4.3) 07/13/17 18:38 Basophils % (Manual) 0 % (0.0-1.8) 07/13/17 18:38 Metamyelocytes % 0 % 07/13/17 18:38 Myelocytes % 0 % 07/13/17 18:38 Promyelocytes % 0 % 07/13/17 18:38 Blast Cells % 0 % 07/13/17 18:38 Nucleated RBC % Not Reportable 07/13/17 18:38 Seg Neutrophils # Man 15.5 K/mm3 (1.8-7.7) H 07/13/17 18:38 Band Neutrophils # 1.1 K/mm3 07/13/17 18:38 Lymphocytes # (Manual) 0.7 K/mm3 (1.2-5.4) L 07/13/17 18:38 Abs React Lymphs (Man) 0.0 K/mm3 07/13/17 18:38 Monocytes # (Manual) 1.1 K/mm3 (0.0-0.8) H 07/13/17 18:38 Eosinophils # (Manual) 0.0 K/mm3 (0.0-0.4) 07/13/17 18:38 Basophils # (Manual) 0.0 K/mm3 (0.0-0.1) 07/13/17 18:38 Metamyelocytes # 0.0 K/mm3 07/13/17 18:38 Myelocytes # 0.0 K/mm3 07/13/17 18:38 Promyelocytes # 0.0 K/mm3 07/13/17 18:38 Blast Cells # 0.0 K/mm3 07/13/17 18:38 WBC Morphology Not Reportable 07/13/17 18:38 Hypersegmented Neuts Not Reportable 07/13/17 18:38 Hyposegmented Neuts Not Reportable 07/13/17 18:38 Hypogranular Neuts Not Reportable 07/13/17 18:38 Smudge Cells Not Reportable 07/13/17 18:38 Toxic Granulation Not Reportable 07/13/17 18:38 Toxic Vacuolation Not Reportable 07/13/17 18:38 Dohle Bodies Not Reportable 07/13/17 18:38 Pelger-Huet Anomaly Not Reportable 07/13/17 18:38 Martha Rods Not Reportable 07/13/17 18:38 Platelet Estimate Consistent w auto 07/13/17 18:38 Clumped Platelets Not Reportable 07/13/17 18:38 Plt Clumps, EDTA Not Reportable 07/13/17 18:38 Large Platelets Not Reportable 07/13/17 18:38 Giant Platelets Not Reportable 07/13/17 18:38 Platelet Satelliting Not Reportable 07/13/17 18:38 Plt Morphology Comment Not Reportable 07/13/17 18:38 RBC Morphology Not Reportable 07/13/17 18:38 Dimorphic RBCs Not Reportable 07/13/17 18:38 Polychromasia Not Reportable 07/13/17 18:38 Hypochromasia Not Reportable 07/13/17 18:38 Poikilocytosis Not Reportable 07/13/17 18:38 Anisocytosis 1+ 07/13/17 18:38 Microcytosis Not Reportable 07/13/17 18:38 Macrocytosis Not Reportable 07/13/17 18:38 Spherocytes Not Reportable 07/13/17 18:38 Pappenheimer Bodies Not Reportable 07/13/17 18:38 Sickle Cells Not Reportable 07/13/17 18:38 Target Cells Not Reportable 07/13/17 18:38 Tear Drop Cells 1+ 07/13/17 18:38 Ovalocytes 1+ 07/13/17 18:38 Helmet Cells Not Reportable 07/13/17 18:38 Connolly-Palco Bodies Not Reportable 07/13/17 18:38 Emerado Rings Not Reportable 07/13/17 18:38 Bethesda Cells Not Reportable 07/13/17 18:38 Bite Cells Not Reportable 07/13/17 18:38 Crenated Cell Not Reportable 07/13/17 18:38 Elliptocytes Not Reportable 07/13/17 18:38 Acanthocytes (Spur) Not Reportable 07/13/17 18:38 Rouleaux Not Reportable 07/13/17 18:38 Hemoglobin C Crystals Not Reportable 07/13/17 18:38 Schistocytes Not Reportable 07/13/17 18:38 Malaria parasites Not Reportable 07/13/17 18:38 Daniel Bodies Not Reportable 07/13/17 18:38 Hem Pathologist Commnt No 07/13/17 18:38 PT 12.8 Sec. (12.2-14.9) 07/13/17 18:38 INR 0.92 (0.87-1.13) 07/13/17 18:38 APTT < 20.0 Sec. (24.2-36.6) L 07/13/17 18:38 D-Dimer 424.00 ng/mlDDU (0-234) H 07/13/17 18:30 POC ABG pH 7.392 (7.35-7.45) 07/14/17 03:53 POC ABG pCO2 46.9 (35-45) H 07/14/17 03:53 POC ABG pO2 301 (80-105) H 07/14/17 03:53 POC ABG HCO3 28.5 07/14/17 03:53 POC ABG Total CO2 30 07/14/17 03:53 POC ABG O2 Sat 100 07/14/17 03:53 POC ABG Base Excess 4 07/14/17 03:53 FiO2 70 % 07/14/17 03:53 Sodium 140 mmol/L (137-145) 07/13/17 18:38 Potassium 4.5 mmol/L (3.6-5.0) 07/13/17 18:38 Chloride 101.0 mmol/L (98-107) 07/13/17 18:38 Carbon Dioxide 23 mmol/L (22-30) 07/13/17 18:38 Anion Gap 21 mmol/L 07/13/17 18:38 BUN 35 mg/dL (7-17) H 07/13/17 18:38 Creatinine 1.4 mg/dL (0.7-1.2) H 07/13/17 18:38 Estimated GFR 46 ml/min 07/13/17 18:38 BUN/Creatinine Ratio 25.00 % 07/13/17 18:38 Glucose 160 mg/dL (65-100) H 07/13/17 18:38 POC Glucose 301 (70-105) H 07/14/17 09:01 Lactic Acid 2.70 mmol/L (0.7-2.0) H* 07/14/17 02:41 Calcium 9.1 mg/dL (8.4-10.2) 07/13/17 18:38 Total Bilirubin 0.70 mg/dL (0.1-1.2) 07/13/17 18:38 AST 294 units/L (5-40) H 07/13/17 18:38 ALT 116 units/L (7-56) H 07/13/17 18:38 Alkaline Phosphatase 86 units/L (35-129) 07/13/17 18:38 Troponin T 0.019 ng/mL (0.00-0.029) 07/13/17 18:38 Total Protein 6.1 g/dL (6.3-8.2) L 07/13/17 18:38 Albumin 3.7 g/dL (3.9-5) L 07/13/17 18:38 Albumin/Globulin Ratio 1.5 % 07/13/17 18:38 Urine Color Yellow (Yellow) 07/13/17 18:30 Urine Turbidity Clear (Clear) 07/13/17 18:30 Urine pH 5.0 (5.0-7.0) 07/13/17 18:30 Ur Specific [place] 1.015 (1.003-1.030) 07/13/17 18:30 Urine Protein 30 mg/dl mg/dL (Negative) 07/13/17 18:30 Urine Glucose (UA) >=500 mg/dL (Negative) 07/13/17 18:30 Urine Ketones Neg mg/dL (Negative) 07/13/17 18:30 Urine Blood Sm (Negative) 07/13/17 18:30 Urine Nitrite Neg (Negative) 07/13/17 18:30 Urine Bilirubin Neg (Negative) 07/13/17 18:30 Urine Urobilinogen < 2.0 mg/dL (<2.0) 07/13/17 18:30 Ur Leukocyte Esterase Neg (Negative) 07/13/17 18:30 Urine WBC (Auto) 1.0 /HPF (0.0-6.0) 07/13/17 18:30 Urine RBC (Auto) < 1.0 /HPF (0.0-6.0) 07/13/17 18:30
[2017-07-14] MEDS ORDERED: D5NS 1,000 ML IV SCH (12:00)
[2017-07-14] MEDS ORDERED: APRESOLINE ONE (19:54)
[2017-07-14] MEDS ORDERED: SUBLIMAZE ONE (19:56)
[2017-07-14] MEDS ORDERED: fentaNYL DRIP Premix 2,000 MCG/100 ML BAG IV ONE (19:58)
[2017-07-14] MEDS ORDERED: APRESOLINE IV ONE (20:00)
[2017-07-14] MEDS ORDERED: fentaNYL DRIP Premix 2,000 MCG/100 ML BAG IV SCH (20:00)
[2017-07-14] MEDS ORDERED: NACL 0.9% 1000 ML 1,000 ML IV SCH (20:00)
[2017-07-14] MEDS ORDERED: TYLENOL PR ONE ×2 (20:00→20:25)
--- NOTE | 2017-07-14 22:31 | Event Note ---
Date: 07/14/17 Called with fever 101.7. Will repeat blood culture. Start empiric Antibiotics.
[2017-07-14] MEDS ORDERED: VANCOMYCIN PHARMACY TO DOSE IV SCH (23:00)
[2017-07-14] MEDS ORDERED: VANCOMYCIN 2,000 MG in NACL 0.9% 500 ML 500 ML IV ONE (23:00)
[2017-07-15 04:28] LABS: Anion Gap 17 mmol/L; Blood Urea Nitrogen 24 mg/dL (7-17); Carbon Dioxide 25 mmol/L (22-30); Chloride 98.6 mmol/L (98-107); Glucose 233 mg/dL (65-100); Potassium 4.1 mmol/L (3.6-5.0); Sodium 136 mmol/L (137-145)
[2017-07-15] MEDS ORDERED: TYLENOL PR ONE (04:38)
[2017-07-15 04:48] LABS: Hematocrit 34.6 % (30.3-42.9); Hemoglobin 11.1 gm/dl (10.1-14.3); Mean Corpuscular HGB Conc 32 % (30-34); Mean Corpuscular Hemoglobin 27 pg (28-32); Mean Corpuscular Volume 84 fl (79-97); Platelet Count 151 K/mm3 (140-440); Red Cell Distribution Width 18.7 % (13.2-15.2); White Blood Count 16.1 K/mm3 (4.5-11.0)
[2017-07-15] MEDS ORDERED: TYLENOL PO ONE (05:00)
[2017-07-15 05:33] LABS: ISTAT Base Excess 3; ISTAT HCO3 27.4; ISTAT PCO2 44.1 (35-45); ISTAT PH 7.401 (7.35-7.45); ISTAT PO2 155 (80-105); ISTAT SO2 99; ISTAT TCO2 29
[2017-07-15] MEDS: NACL 0.9% 1000 ML 1,000 ML IV SCH ×3 (06:00→18:44)
[2017-07-15] MEDS ORDERED: MAGNESIUM SULFATE 2GM/50ML 2 GM/50 ML BAG IV ONE (06:29)
[2017-07-15] MEDS ORDERED: DIPRIVAN 10 MG/ML 1,000 MG/100 ML BOTTLE IV ONE (09:41)
[2017-07-15] MEDS ORDERED: LEVAQUIN 750MG/150ML 750 MG/150 ML BAG IV ONE (09:59)
[2017-07-15] MEDS ORDERED: PROTONIX IV SCH (10:00)
[2017-07-15] MEDS: DIPRIVAN 10 MG/ML 1,000 MG/100 ML BOTTLE IV SCH (10:03)
[2017-07-15] MEDS: LEVAQUIN 750MG/150ML 750 MG/150 ML BAG IV SCH (10:04)
--- NOTE | 2017-07-15 12:25 | Progress Note ---
Assessment and Plan Assessment and plan: Patient is a 62-year-old woman with a , hypertension, diabetes mellitus, dyslipidemia and tobacco dependency who presents with altered mental status after being found unresponsive by family. Patient was found to have a Blood glucose was 46. Chest x-ray read as no acute findings. Urinalysis is not indicative of UTI. She was eventually intubated with the patient as follows: Emergency Provider: RITCHIE HU Date: 07/13/17, "Called by respiratory therapist for assistance intubating patient in the ED. Patient in respiratory failure, attempted intubations by ED physician. Patient was being ventilated via bag/mask on my arrival. O2 sat around 88-89%. Direct laryngoscopy was performed with carter 3 blade. Oropharynx suctioned. Cricoid pressure applied showing grade 2 view of vocal cords with fair amount of edema and bloody secretions to posterior oropharynx. Bougie was passed thorough vocal cords and endotracheal tube was inserted over bougie. Tube passed easily with no obstruction. Bougie removed and patient ventilated using ambubag to the tube. good color change with CO2 detector and bilateral breath sounds were noted. O2 sat increased to 100% post intubation" per anesthesiologist Dr. Deion Rodas -Acute hypoxic respiratory failure s/p Intubation most likely due to hypoglycemia coma, no prior history in our EMR, I called the spouse Mr. Johnny Turner but the number in our EMR in nonfunctional, : Consulted Dr. Salazar -Hypoglycemic coma, bg improved: Change dextrose 10% IV fluids -Acute metabolic encephalopathy, herhome medications does not list any specific diabetes mellitus medication; therefore, I don't know what she took -Acute respiratory acidosis: Continue mechanical ventilator, follow-up ABGs -Acute renal failure most likely due to ATN with hypotension, without a known baseline: Treat with fluid resuscitation,, she has history of coronary artery disease I do not know if she has a history of CHF; therefore, carefully monitor for fluid overload -Mild transaminitis likely due to shock liver/hypotension, should improve with blood pressure -SIRS with probable sepsis, no source at this particular time -DVT prophylaxis: Added subcutaneous heparin Full code NEW issue is fevers: Suspect aspiration pneumonia, abx started and I consulted Infectious Disease. I called at new number [phone] and spoke with him, she had pig valve placed when patient was 12, no cabg. She has crohn on daily prednisone 20mg day and colectomy. pcp mariah. for dm, regular and n insulin. when he found her "blood sugar was 47". When placed on Humira, at [facility] 2 years they put her on 25 n morning and 25 N insulin at night. He really doesn't know why blood sugars were low. When she found that her sugar was 47 he initially gave then 10 r and 15 n insulin, then gave her orange juice and prednisone. Also he report his "stretch her throat twice". I am assuming esophageal dilation. The high probability of a clinically significant, sudden or life threatening deterioration of the [] system(s) required my full and direct attention, intervention and personal management. The aggregate critical care time was [32] minutes. This time is in addition to time spent performing reported procedures but includes the following: [] Data Review and interpretation [] Patient assessment and monitoring of vital signs [] Documentation [] Medication orders and management History Interval history: Patient was seen and examined. Follow-up on current diagnosis/resp failure. Intubated and sedated on Diprivan. She has left heel breakdown. Hospitalist Physical - Physical exam Narrative exam: GEN: Ill-appearing, intubated and sedated HEENT: NCAT, pupils reactive. No jaundice, Ett in place, NECK: supple, no adenopathy, no thyromegaly, no JVD CVS/HEART: RRR, NORMAL S1S2, NO JVD, pulses present bilaterally CHEST/LUNGS: Symmetrical chest expansion, good air entry bilaterally GI/Abdomen: soft, NTND, good bowel sounds, no guarding or rebound /Bladder: no suprapubic tenderness, no CVA or paraspinal tenderness EXT/Skin: no significant edema, no obvious rash MSK: spontaneous movement x 4 Neuro: CN 2-12 grossly intact but sedated Psych: Sedated - Constitutional Vitals: Temp Pulse Resp BP Pulse Ox 97.6 F 88 20 95/57 100 07/15/17 11:30 07/15/17 11:30 07/15/17 11:30 07/15/17 11:30 07/15/17 11:30 Results - Labs CBC & Chem 7: 07/15/17 03:56 07/15/17 03:56 Labs: Laboratory Last Values WBC 16.1 K/mm3 (4.5-11.0) H 07/15/17 03:56 RBC 4.10 M/mm3 (3.65-5.03) 07/15/17 03:56 Hgb 11.1 gm/dl (10.1-14.3) 07/15/17 03:56 Hct 34.6 % (30.3-42.9) 07/15/17 03:56 MCV 84 fl (79-97) 07/15/17 03:56 MCH 27 pg (28-32) L 07/15/17 03:56 MCHC 32 % (30-34) 07/15/17 03:56 RDW 18.7 % (13.2-15.2) H 07/15/17 03:56 Plt Count 151 K/mm3 (140-440) 07/15/17 03:56 Add Manual Diff Complete 07/13/17 18:38 Total Counted 100 07/13/17 18:38 Seg Neuts % (Manual) 84.0 % (40.0-70.0) H 07/13/17 18:38 Band Neutrophils % 6.0 % 07/13/17 18:38 Lymphocytes % (Manual) 4.0 % (13.4-35.0) L 07/13/17 18:38 Reactive Lymphs % (Man) 0 % 07/13/17 18:38 Monocytes % (Manual) 6.0 % (0.0-7.3) 07/13/17 18:38 Eosinophils % (Manual) 0 % (0.0-4.3) 07/13/17 18:38 Basophils % (Manual) 0 % (0.0-1.8) 07/13/17 18:38 Metamyelocytes % 0 % 07/13/17 18:38 Myelocytes % 0 % 07/13/17 18:38 Promyelocytes % 0 % 07/13/17 18:38 Blast Cells % 0 % 07/13/17 18:38 Nucleated RBC % Not Reportable 07/13/17 18:38 Seg Neutrophils # Man 15.5 K/mm3 (1.8-7.7) H 07/13/17 18:38 Band Neutrophils # 1.1 K/mm3 07/13/17 18:38 Lymphocytes # (Manual) 0.7 K/mm3 (1.2-5.4) L 07/13/17 18:38 Abs React Lymphs (Man) 0.0 K/mm3 07/13/17 18:38 Monocytes # (Manual) 1.1 K/mm3 (0.0-0.8) H 07/13/17 18:38 Eosinophils # (Manual) 0.0 K/mm3 (0.0-0.4) 07/13/17 18:38 Basophils # (Manual) 0.0 K/mm3 (0.0-0.1) 07/13/17 18:38 Metamyelocytes # 0.0 K/mm3 07/13/17 18:38 Myelocytes # 0.0 K/mm3 07/13/17 18:38 Promyelocytes # 0.0 K/mm3 07/13/17 18:38 Blast Cells # 0.0 K/mm3 07/13/17 18:38 WBC Morphology Not Reportable 07/13/17 18:38 Hypersegmented Neuts Not Reportable 07/13/17 18:38 Hyposegmented Neuts Not Reportable 07/13/17 18:38 Hypogranular Neuts Not Reportable 07/13/17 18:38 Smudge Cells Not Reportable 07/13/17 18:38 Toxic Granulation Not Reportable 07/13/17 18:38 Toxic Vacuolation Not Reportable 07/13/17 18:38 Dohle Bodies Not Reportable 07/13/17 18:38 Pelger-Huet Anomaly Not Reportable 07/13/17 18:38 Martha Rods Not Reportable 07/13/17 18:38 Platelet Estimate Consistent w auto 07/13/17 18:38 Clumped Platelets Not Reportable 07/13/17 18:38 Plt Clumps, EDTA Not Reportable 07/13/17 18:38 Large Platelets Not Reportable 07/13/17 18:38 Giant Platelets Not Reportable 07/13/17 18:38 Platelet Satelliting Not Reportable 07/13/17 18:38 Plt Morphology Comment Not Reportable 07/13/17 18:38 RBC Morphology Not Reportable 07/13/17 18:38 Dimorphic RBCs Not Reportable 07/13/17 18:38 Polychromasia Not Reportable 07/13/17 18:38 Hypochromasia Not Reportable 07/13/17 18:38 Poikilocytosis Not Reportable 07/13/17 18:38 Anisocytosis 1+ 07/13/17 18:38 Microcytosis Not Reportable 07/13/17 18:38 Macrocytosis Not Reportable 07/13/17 18:38 Spherocytes Not Reportable 07/13/17 18:38 Pappenheimer Bodies Not Reportable 07/13/17 18:38 Sickle Cells Not Reportable 07/13/17 18:38 Target Cells Not Reportable 07/13/17 18:38 Tear Drop Cells 1+ 07/13/17 18:38 Ovalocytes 1+ 07/13/17 18:38 Helmet Cells Not Reportable 07/13/17 18:38 [place] Bodies Not Reportable 07/13/17 18:38 [place] Rings Not Reportable 07/13/17 18:38 [place] Cells Not Reportable 07/13/17 18:38 Bite Cells Not Reportable 07/13/17 18:38 Crenated Cell Not Reportable 07/13/17 18:38 Elliptocytes Not Reportable 07/13/17 18:38 Acanthocytes (Spur) Not Reportable 07/13/17 18:38 Rouleaux Not Reportable 07/13/17 18:38 Hemoglobin C Crystals Not Reportable 07/13/17 18:38 Schistocytes Not Reportable 07/13/17 18:38 Malaria parasites Not Reportable 07/13/17 18:38 Daniel Bodies Not Reportable 07/13/17 18:38 Hem Pathologist Commnt No 07/13/17 18:38 PT 12.8 Sec. (12.2-14.9) 07/13/17 18:38 INR 0.92 (0.87-1.13) 07/13/17 18:38 APTT < 20.0 Sec. (24.2-36.6) L 07/13/17 18:38 D-Dimer 424.00 ng/mlDDU (0-234) H 07/13/17 18:30 POC ABG pH 7.401 (7.35-7.45) 07/15/17 05:29 POC ABG pCO2 44.1 (35-45) 07/15/17 05:29 POC ABG pO2 155 (80-105) H 07/15/17 05:29 POC ABG HCO3 27.4 07/15/17 05:29 POC ABG Total CO2 29 07/15/17 05:29 POC ABG O2 Sat 99 07/15/17 05:29 POC ABG Base Excess 3 07/15/17 05:29 FiO2 40 % 07/15/17 05:29 Sodium 136 mmol/L (137-145) L 07/15/17 03:56 Potassium 4.1 mmol/L (3.6-5.0) 07/15/17 03:56 Chloride 98.6 mmol/L (98-107) 07/15/17 03:56 Carbon Dioxide 25 mmol/L (22-30) 07/15/17 03:56 Anion Gap 17 mmol/L 07/15/17 03:56 BUN 24 mg/dL (7-17) H 07/15/17 03:56 Creatinine 0.8 mg/dL (0.7-1.2) 07/15/17 03:56 Estimated GFR > 60 ml/min 07/15/17 03:56 BUN/Creatinine Ratio 30.00 % 07/15/17 03:56 Glucose 233 mg/dL (65-100) H 07/15/17 03:56 POC Glucose 296 (70-105) H 07/15/17 09:09 Lactic Acid 2.70 mmol/L (0.7-2.0) H* 07/14/17 02:41 Calcium 8.0 mg/dL (8.4-10.2) L 07/15/17 03:56 Magnesium 1.60 mg/dL (1.7-2.3) L 07/15/17 03:56 Total Bilirubin 0.70 mg/dL (0.1-1.2) 07/13/17 18:38 AST 294 units/L (5-40) H 07/13/17 18:38 ALT 116 units/L (7-56) H 07/13/17 18:38 Alkaline Phosphatase 86 units/L (35-129) 07/13/17 18:38 Troponin T 0.019 ng/mL (0.00-0.029) 07/13/17 18:38 Total Protein 6.1 g/dL (6.3-8.2) L 07/13/17 18:38 Albumin 3.7 g/dL (3.9-5) L 07/13/17 18:38 Albumin/Globulin Ratio 1.5 % 07/13/17 18:38 Urine Color Yellow (Yellow) 07/13/17 18:30 Urine Turbidity Clear (Clear) 07/13/17 18:30 Urine pH 5.0 (5.0-7.0) 07/13/17 18:30 Ur Specific [place] 1.015 (1.003-1.030) 07/13/17 18:30 Urine Protein 30 mg/dl mg/dL (Negative) 07/13/17 18:30 Urine Glucose (UA) >=500 mg/dL (Negative) 07/13/17 18:30 Urine Ketones Neg mg/dL (Negative) 07/13/17 18:30 Urine Blood Sm (Negative) 07/13/17 18:30 Urine Nitrite Neg (Negative) 07/13/17 18:30 Urine Bilirubin Neg (Negative) 07/13/17 18:30 Urine Urobilinogen < 2.0 mg/dL (<2.0) 07/13/17 18:30 Ur Leukocyte Esterase Neg (Negative) 07/13/17 18:30 Urine WBC (Auto) 1.0 /HPF (0.0-6.0) 07/13/17 18:30 Urine RBC (Auto) < 1.0 /HPF (0.0-6.0) 07/13/17 18:30
[2017-07-15] MEDS: HEPARIN SUB-Q SCH ×2 (12:52→22:52)
--- NOTE | 2017-07-15 14:10 | Consultation ---
History of Present Illness - Reason for Consult Consult date: 07/15/17 sepsis Requesting physician: ESPINOZA CHURCH - History of Present Illness 62 year old female with HTN, MA, DM, CAD/SP CABG, Metabolic Syndrome, tobacco abuse; admitted on 07/13/17 due to be found unresponsive by family members. He was found SOB and hypoclycemic at 46 by EMS. In the emergency room, her temperature was 99.9 which went up to 101.7. Initial heart rate was 113, blood pressure 102/69. Pressure went down to 96/ 61. Her white count was 18,000, hemoglobin 11.4. CR 1.4. AST 244 and ALT 116. UA was negative. CXR neg. Patient was emergently intubated in the emergency room. Microbiology: Blood cultures: 07/13 ngtd 07/14 ngtd Urine cultures: Respiratory cultures: Wound cultures: Stool cultures: Current Antimicrobials: Levaquin Vancomycin Past History Past Medical History: acute MA, CAD, diabetes, hypertension Past Surgical History: CABG Social history: , lives with family, smoking. denies: alcohol abuse, prescription drug abuse, IV drug use Family history: diabetes, hypertension Medications and Allergies Allergies Allergy/AdvReac Type Severity Reaction Status Date / Time Penicillins Allergy Anaphylaxis Verified 07/13/17 17:23 Home Medications Medication Instructions Recorded Confirmed Last Taken Type Albuterol Sulfate [Ventolin HFA] 2 puff IH Q4H PRN 07/14/17 07/14/17 Unknown History Aspirin [Aspirin BABY CHEW TAB] 81 mg PO QDAY 07/14/17 07/14/17 Unknown History Cyanocobalamin (Vitamin B-12) 1,000 mcg PO QDAY 07/14/17 07/14/17 Unknown History [Vitamin B-12] Gabapentin [Neurontin] 300 mg PO QHS 07/14/17 07/14/17 Unknown History LORazepam [Ativan] 1 mg PO QHS 07/14/17 07/14/17 Unknown History QUEtiapine [SEROquel] 100 mg PO QHS 07/14/17 07/14/17 Unknown History Simvastatin [Zocor TAB] 10 mg PO QHS 07/14/17 07/14/17 Unknown History amLODIPine [Norvasc] 5 mg PO DAILY 07/14/17 07/14/17 Unknown History Active Meds: Active Medications Bisacodyl (Dulcolax) 10 mg SD QDAY PRN PRN Reason: Constipation Famotidine (Pepcid) 20 mg IV BID JEFF Heparin Sodium (Porcine) (Heparin) 5,000 unit SUB-Q Q12HR JEFF Last Admin: 07/15/17 12:52 Dose: 5,000 unit Propofol (Diprivan 10 Mg/Ml) 1,000 mg in 100 mls @ 6.75 mls/hr IV TITR JEFF; 5 MCG/KG/MIN PRN Reason: Protocol Last Admin: 07/15/17 10:03 Dose: 20 mcg/kg/min, 27 mls/hr Fentanyl Citrate (Fentanyl Drip Premix) 2,000 mcg in 100 mls @ 5.1 mls/hr IV TITR JEFF; 1 MCG/KG/HR PRN Reason: Protocol Last Admin: 07/14/17 22:20 Dose: 2 mcg/kg/hr, 10.2 mls/hr Levofloxacin/Dextrose (Levaquin 750mg/150ml) 750 mg in 150 mls @ 100 mls/hr IV Q24HR JEFF PRN Reason: Protocol Last Admin: 07/15/17 10:04 Dose: 100 mls/hr Sodium Chloride (Nacl 0.9% 1000 Ml) 1,000 mls @ 125 mls/hr IV DIRECT JEFF Last Admin: 07/15/17 12:26 Dose: 125 mls/hr Vancomycin HCl 1,250 mg/ (Sodium Chloride) 262.5 mls @ 166.667 mls/hr IV Q12H JEFF Vancomycin HCl (Vancomycin Pharmacy To Dose) 1 each IV PKCONSULT JEFF PRN Reason: Protocol Review of Systems ROS unobtainable: due to mental status Physical Examination - Physical Exam Narrative exam: General appearance: intubated in NAD onthe vent PRVC Eyes: anicteric sclerae, moist conjunctivae; no lid-lag; PERRLA HENT: Atraumatic; oropharynx + ETT +OGT Neck: Trachea midline; supple, no thyromegaly or lymphadenopathy Lungs: CTA CV: RRR Abdomen: Soft, non-tender; no masses or hepatosplenomegaly Extremities: No peripheral edema or extremity lymphadenopathy Skin: left heel superficial ulcers Psych: Appropriate affect, alert and oriented to person, place and time. Neuro: alert and oriented x 3. Moving all extermities Lines: - Constitutional Vitals: Vital Signs Temp Pulse Resp BP Pulse Ox 97.6 F 88 20 95/57 100 07/15/17 11:30 07/15/17 11:30 07/15/17 11:30 07/15/17 11:30 07/15/17 11:30 Temperature -Last 24 Hours Temperature 97.6 F Temperature 97.4 F Temperature 99.5 F Temperature 97.9 F Temperature 101.7 F Temperature 99.9 F Temperature 99.9 F Results - Labs CBC & Chem 7: 07/15/17 03:56 07/15/17 03:56 Labs: Abnormal lab results 07/14/17 07/14/17 07/15/17 Range/Units 17:39 20:07 01:48 WBC (4.5-11.0) K/mm3 MCH (28-32) pg RDW (13.2-15.2) % POC ABG pO2 (80-105) Sodium (137-145) mmol/L BUN (7-17) mg/dL Glucose (65-100) mg/dL POC Glucose 234 H 237 H 251 H (70-105) Calcium (8.4-10.2) mg/dL Magnesium (1.7-2.3) mg/dL 07/15/17 07/15/17 07/15/17 Range/Units 03:56 03:56 05:29 WBC 16.1 H (4.5-11.0) K/mm3 MCH 27 L (28-32) pg RDW 18.7 H (13.2-15.2) % POC ABG pO2 155 H (80-105) Sodium 136 L (137-145) mmol/L BUN 24 H (7-17) mg/dL Glucose 233 H (65-100) mg/dL POC Glucose (70-105) Calcium 8.0 L (8.4-10.2) mg/dL Magnesium 1.60 L (1.7-2.3) mg/dL 07/15/17 07/15/17 Range/Units 05:50 09:09 WBC (4.5-11.0) K/mm3 MCH (28-32) pg RDW (13.2-15.2) % POC ABG pO2 (80-105) Sodium (137-145) mmol/L BUN (7-17) mg/dL Glucose (65-100) mg/dL POC Glucose 292 H 296 H (70-105) Calcium (8.4-10.2) mg/dL Magnesium (1.7-2.3) mg/dL - Imaging and Cardiology Chest x-ray: report reviewed (neg) Assessment and Plan Assessment: 1) Sepsis: Present on admission, manifested by fever, tachycardia, hypotension, leukocytosis. Etiology - unclear source ? aspiration pneumonia, occult infections, GI 2) AMS-unresponsive 3) ETELVINA 4) Elevated LFTs ? from shock liver 5) Respiratory failure 6) Hypoglycemia Plan: -follow-up blood cultures, urine culture -obtain respiratory cultures, procalcitonin, C-reactive protein (CRP) -repeat CXR in the AM -check viral hepatitis panel -consider abdominal imaging when stable -continue levaquin and vancomycin -add clindamycin Thank you Dr Church for your consultation, will follow up with you. Gretchen Mathews MD Infectious Diseases Specialist [facility] M [phone] O [phone]
[2017-07-15] MEDS: VANCOMYCIN 1,250 MG in NACL 0.9% 250ML 250 ML IV SCH (20:55)
[2017-07-15] MEDS: PEPCID IV SCH (22:53)
[2017-07-15] MEDS: CLEOCIN 600 MG/50 mL 600 MG/50 ML BAG IV SCH (22:54)
[2017-07-15] MEDS ORDERED: VANCOMYCIN 1,500 MG in NACL 0.9% 500 ML 500 ML IV SCH (23:00)
[2017-07-16] MEDS: CLEOCIN 600 MG/50 mL 600 MG/50 ML BAG IV SCH ×2 (06:22→15:40)
[2017-07-16 06:40] LABS: Hematocrit 31.9 % (30.3-42.9); Hemoglobin 10.3 gm/dl (10.1-14.3); Mean Corpuscular HGB Conc 32 % (30-34); Mean Corpuscular Hemoglobin 27 pg (28-32); Mean Corpuscular Volume 84 fl (79-97); Platelet Count 152 K/mm3 (140-440); Red Blood Count 3.79 M/mm3 (3.65-5.03); Red Cell Distribution Width 18.5 % (13.2-15.2); White Blood Count 13.9 K/mm3 (4.5-11.0)
[2017-07-16] MEDS: VANCOMYCIN 1,250 MG in NACL 0.9% 250ML 250 ML IV SCH ×2 (06:45→18:00)
[2017-07-16 06:48] LABS: Anion Gap 18 mmol/L; Blood Urea Nitrogen 20 mg/dL (7-17); Carbon Dioxide 22 mmol/L (22-30); Chloride 107.2 mmol/L (98-107); Glucose 154 mg/dL (65-100); Potassium 3.9 mmol/L (3.6-5.0); Sodium 143 mmol/L (137-145)
--- NOTE | 2017-07-16 10:40 | Progress Note ---
Assessment and Plan Assessment and plan: Patient is a 62-year-old woman with a (per , she had congential heart disease and repair when she was around 12 yrs old), hypertension, diabetes mellitus, dyslipidemia and tobacco dependency who presents with altered mental status after being found unresponsive by family. Patient was found to have a Blood glucose was 46. Chest x-ray read as no acute findings. Urinalysis is not indicative of UTI. She was eventually intubated with the patient as follows : Emergency Provider: RITCHIE HU Date: 07/13/17, "Called by respiratory therapist for assistance intubating patient in the ED. Patient in respiratory failure, attempted intubations by ED physician. Patient was being ventilated via bag/mask on my arrival. O2 sat around 88-89%. Direct laryngoscopy was performed with carter 3 blade. Oropharynx suctioned. Cricoid pressure applied showing grade 2 view of vocal cords with fair amount of edema and bloody secretions to posterior oropharynx. Bougie was passed thorough vocal cords and endotracheal tube was inserted over bougie. Tube passed easily with no obstruction. Bougie removed and patient ventilated using ambubag to the tube. good color change with CO2 detector and bilateral breath sounds were noted. O2 sat increased to 100% post intubation" per anesthesiologist Dr. Deion Rodas -Acute hypoxic respiratory failure s/p Intubation most likely due to hypoglycemia coma, no prior history in our EMR, I called the spouse Mr. Johnny Turner but the number in our EMR in nonfunctional, : Consulted Dr. Salazar -Hypoglycemic coma, bg improved: Change dextrose 10% IV fluids -Acute metabolic encephalopathy, herhome medications does not list any specific diabetes mellitus medication; therefore, I don't know what she took -Acute respiratory acidosis: Continue mechanical ventilator, follow-up ABGs -Acute renal failure most likely due to ATN with hypotension, without a known baseline: Treat with fluid resuscitation, he has history of coronary artery disease I do not know if she has a history of CHF; therefore, carefully monitor for fluid overload -Mild transaminitis likely due to shock liver/hypotension, should improve with blood pressure -SIRS with probable sepsis, no source at this particular time -DVT prophylaxis: Added subcutaneous heparin Full code NEW issue is fevers: Suspect aspiration pneumonia, abx started and I consulted Infectious Disease. I called at new number [phone] and spoke with him, she had pig valve placed when patient was 12, no cabg. She has crohn on daily prednisone 20mg day and colectomy. pcp mariah. for dm, regular and n insulin. when he found her "blood sugar was 47". When placed on Humira, at [facility] 2 years they put her on 25 n morning and 25 N insulin at night. He really doesn't know why blood sugars were low. When he found that her blood sugars were 47 he initially gave then 10 r and 15 n insulin, then he gave her orange juice and prednisone. He was educated and noted his error for next time. Also he report his "stretch her throat twice". I am assuming esophageal dilation. 07/16/17: Extubated 07/15/17, doing better, start diet, d/c johnson, She still not sure what went wrong, maybe she didn't eat enough. If blood glucose stable, will d/c tomorrow. History Interval history: Patient was seen and examined. Follow-up on current diagnosis/resp failure. Intubated and sedated on Diprivan. She has left heel breakdown. Hospitalist Physical - Physical exam Narrative exam: GEN: Ill-appearing, intubated and sedated HEENT: NCAT, pupils reactive. No jaundice, Ett in place, NECK: supple, no adenopathy, no thyromegaly, no JVD CVS/HEART: RRR, NORMAL S1S2, NO JVD, pulses present bilaterally CHEST/LUNGS: Symmetrical chest expansion, good air entry bilaterally GI/Abdomen: soft, NTND, good bowel sounds, no guarding or rebound /Bladder: no suprapubic tenderness, no CVA or paraspinal tenderness EXT/Skin: no significant edema, no obvious rash MSK: spontaneous movement x 4 Neuro: CN 2-12 grossly intact but sedated Psych: Sedated - Constitutional Vitals: Temp Pulse Resp BP Pulse Ox 99.8 F H 97 H 18 131/75 96 07/16/17 08:17 07/16/17 08:17 07/16/17 08:17 07/16/17 08:17 07/16/17 08:17 General appearance: Present: severe distress Results - Labs CBC & Chem 7: 07/16/17 06:02 07/16/17 06:02 Labs: Laboratory Last Values WBC 13.9 K/mm3 (4.5-11.0) H 07/16/17 06:02 RBC 3.79 M/mm3 (3.65-5.03) 07/16/17 06:02 Hgb 10.3 gm/dl (10.1-14.3) 07/16/17 06:02 Hct 31.9 % (30.3-42.9) 07/16/17 06:02 MCV 84 fl (79-97) 07/16/17 06:02 MCH 27 pg (28-32) L 07/16/17 06:02 MCHC 32 % (30-34) 07/16/17 06:02 RDW 18.5 % (13.2-15.2) H 07/16/17 06:02 Plt Count 152 K/mm3 (140-440) 07/16/17 06:02 Add Manual Diff Complete 07/13/17 18:38 Total Counted 100 07/13/17 18:38 Seg Neuts % (Manual) 84.0 % (40.0-70.0) H 07/13/17 18:38 Band Neutrophils % 6.0 % 07/13/17 18:38 Lymphocytes % (Manual) 4.0 % (13.4-35.0) L 07/13/17 18:38 Reactive Lymphs % (Man) 0 % 07/13/17 18:38 Monocytes % (Manual) 6.0 % (0.0-7.3) 07/13/17 18:38 Eosinophils % (Manual) 0 % (0.0-4.3) 07/13/17 18:38 Basophils % (Manual) 0 % (0.0-1.8) 07/13/17 18:38 Metamyelocytes % 0 % 07/13/17 18:38 Myelocytes % 0 % 07/13/17 18:38 Promyelocytes % 0 % 07/13/17 18:38 Blast Cells % 0 % 07/13/17 18:38 Nucleated RBC % Not Reportable 07/13/17 18:38 Seg Neutrophils # Man 15.5 K/mm3 (1.8-7.7) H 07/13/17 18:38 Band Neutrophils # 1.1 K/mm3 07/13/17 18:38 Lymphocytes # (Manual) 0.7 K/mm3 (1.2-5.4) L 07/13/17 18:38 Abs React Lymphs (Man) 0.0 K/mm3 07/13/17 18:38 Monocytes # (Manual) 1.1 K/mm3 (0.0-0.8) H 07/13/17 18:38 Eosinophils # (Manual) 0.0 K/mm3 (0.0-0.4) 07/13/17 18:38 Basophils # (Manual) 0.0 K/mm3 (0.0-0.1) 07/13/17 18:38 Metamyelocytes # 0.0 K/mm3 07/13/17 18:38 Myelocytes # 0.0 K/mm3 07/13/17 18:38 Promyelocytes # 0.0 K/mm3 07/13/17 18:38 Blast Cells # 0.0 K/mm3 07/13/17 18:38 WBC Morphology Not Reportable 07/13/17 18:38 Hypersegmented Neuts Not Reportable 07/13/17 18:38 Hyposegmented Neuts Not Reportable 07/13/17 18:38 Hypogranular Neuts Not Reportable 07/13/17 18:38 Smudge Cells Not Reportable 07/13/17 18:38 Toxic Granulation Not Reportable 07/13/17 18:38 Toxic Vacuolation Not Reportable 07/13/17 18:38 Dohle Bodies Not Reportable 07/13/17 18:38 Pelger-Huet Anomaly Not Reportable 07/13/17 18:38 Martha Rods Not Reportable 07/13/17 18:38 Platelet Estimate Consistent w auto 07/13/17 18:38 Clumped Platelets Not Reportable 07/13/17 18:38 Plt Clumps, EDTA Not Reportable 07/13/17 18:38 Large Platelets Not Reportable 07/13/17 18:38 Giant Platelets Not Reportable 07/13/17 18:38 Platelet Satelliting Not Reportable 07/13/17 18:38 Plt Morphology Comment Not Reportable 07/13/17 18:38 RBC Morphology Not Reportable 07/13/17 18:38 Dimorphic RBCs Not Reportable 07/13/17 18:38 Polychromasia Not Reportable 07/13/17 18:38 Hypochromasia Not Reportable 07/13/17 18:38 Poikilocytosis Not Reportable 07/13/17 18:38 Anisocytosis 1+ 07/13/17 18:38 Microcytosis Not Reportable 07/13/17 18:38 Macrocytosis Not Reportable 07/13/17 18:38 Spherocytes Not Reportable 07/13/17 18:38 Pappenheimer Bodies Not Reportable 07/13/17 18:38 Sickle Cells Not Reportable 07/13/17 18:38 Target Cells Not Reportable 07/13/17 18:38 Tear Drop Cells 1+ 07/13/17 18:38 Ovalocytes 1+ 07/13/17 18:38 Helmet Cells Not Reportable 07/13/17 18:38 Connolly-Severn Bodies Not Reportable 07/13/17 18:38 [place] Rings Not Reportable 07/13/17 18:38 [place] Cells Not Reportable 07/13/17 18:38 Bite Cells Not Reportable 07/13/17 18:38 Crenated Cell Not Reportable 07/13/17 18:38 Elliptocytes Not Reportable 07/13/17 18:38 Acanthocytes (Spur) Not Reportable 07/13/17 18:38 Rouleaux Not Reportable 07/13/17 18:38 Hemoglobin C Crystals Not Reportable 07/13/17 18:38 Schistocytes Not Reportable 07/13/17 18:38 Malaria parasites Not Reportable 07/13/17 18:38 Daniel Bodies Not Reportable 07/13/17 18:38 Hem Pathologist Commnt No 07/13/17 18:38 PT 12.8 Sec. (12.2-14.9) 07/13/17 18:38 INR 0.92 (0.87-1.13) 07/13/17 18:38 APTT < 20.0 Sec. (24.2-36.6) L 07/13/17 18:38 D-Dimer 424.00 ng/mlDDU (0-234) H 07/13/17 18:30 POC ABG pH 7.401 (7.35-7.45) 07/15/17 05:29 POC ABG pCO2 44.1 (35-45) 07/15/17 05:29 POC ABG pO2 155 (80-105) H 07/15/17 05:29 POC ABG HCO3 27.4 07/15/17 05:29 POC ABG Total CO2 29 07/15/17 05:29 POC ABG O2 Sat 99 07/15/17 05:29 POC ABG Base Excess 3 07/15/17 05:29 FiO2 40 % 07/15/17 05:29 Sodium 143 mmol/L (137-145) D 07/16/17 06:02 Potassium 3.9 mmol/L (3.6-5.0) 07/16/17 06:02 Chloride 107.2 mmol/L (98-107) H 07/16/17 06:02 Carbon Dioxide 22 mmol/L (22-30) 07/16/17 06:02 Anion Gap 18 mmol/L 07/16/17 06:02 BUN 20 mg/dL (7-17) H 07/16/17 06:02 Creatinine 0.8 mg/dL (0.7-1.2) 07/16/17 06:02 Estimated GFR > 60 ml/min 07/16/17 06:02 BUN/Creatinine Ratio 25.00 % 07/16/17 06:02 Glucose 154 mg/dL (65-100) H 07/16/17 06:02 POC Glucose 237 (70-105) H 07/15/17 17:05 Lactic Acid 2.70 mmol/L (0.7-2.0) H* 07/14/17 02:41 Calcium 8.0 mg/dL (8.4-10.2) L 07/16/17 06:02 Magnesium 1.60 mg/dL (1.7-2.3) L 07/15/17 03:56 Total Bilirubin 0.70 mg/dL (0.1-1.2) 07/13/17 18:38 AST 294 units/L (5-40) H 07/13/17 18:38 ALT 116 units/L (7-56) H 07/13/17 18:38 Alkaline Phosphatase 86 units/L (35-129) 07/13/17 18:38 Troponin T 0.019 ng/mL (0.00-0.029) 07/13/17 18:38 C-Reactive Protein 3.80 mg/dL (0.00-1.30) H 07/15/17 14:43 Total Protein 6.1 g/dL (6.3-8.2) L 07/13/17 18:38 Albumin 3.7 g/dL (3.9-5) L 07/13/17 18:38 Albumin/Globulin Ratio 1.5 % 07/13/17 18:38 Urine Color Yellow (Yellow) 07/13/17 18:30 Urine Turbidity Clear (Clear) 07/13/17 18:30 Urine pH 5.0 (5.0-7.0) 07/13/17 18:30 Ur Specific [place] 1.015 (1.003-1.030) 07/13/17 18:30 Urine Protein 30 mg/dl mg/dL (Negative) 07/13/17 18:30 Urine Glucose (UA) >=500 mg/dL (Negative) 07/13/17 18:30 Urine Ketones Neg mg/dL (Negative) 07/13/17 18:30 Urine Blood Sm (Negative) 07/13/17 18:30 Urine Nitrite Neg (Negative) 07/13/17 18:30 Urine Bilirubin Neg (Negative) 07/13/17 18:30 Urine Urobilinogen < 2.0 mg/dL (<2.0) 07/13/17 18:30 Ur Leukocyte Esterase Neg (Negative) 07/13/17 18:30 Urine WBC (Auto) 1.0 /HPF (0.0-6.0) 07/13/17 18:30 Urine RBC (Auto) < 1.0 /HPF (0.0-6.0) 07/13/17 18:30 Hepatitis A IgM Ab Non-reactive (NonReactive) 07/15/17 14:43 Hep Bs Antigen Non-reactive (Negative) 07/15/17 14:43 Hep B Core IgM Ab Non-reactive (NonReactive) 07/15/17 14:43 Hepatitis C Antibody Non-reactive (NonReactive) 07/15/17 14:43
[2017-07-16] MEDS: HEPARIN SUB-Q SCH (10:58)
[2017-07-16] MEDS: LEVAQUIN 750MG/150ML 750 MG/150 ML BAG IV SCH (10:58)
[2017-07-16] MEDS: PEPCID IV SCH (11:00)
[2017-07-16] MEDS ORDERED: PEPCID PO SCH (13:00)
--- NOTE | 2017-07-16 17:10 | XRay Report ---
FINAL REPORT PROCEDURE: XR CHEST ROUTINE 2V TECHNIQUE: PA and lateral chest radiographs were obtained. CPT 54982 HISTORY: inerval changes ? apsiration pneumonia COMPARISON: No prior studies are available for comparison. FINDINGS: Heart: Normal. Mediastinum/Vessels: Normal. Lungs/Pleural space: A small patchy density is noted in the superior segment right lower lobe. There is diffuse prominence of interstitial markings. Pleural spaces are clear. Main pulmonary artery is prominent.. Bony thorax: No acute osseous abnormality. Other: IMPRESSION: Prominent main pulmonary artery most likely represents pulmonary arterial hypertension. Prominent interstitial markings suspicious for interstitial fibrosis A patchy density in the superior segment right lower lobe is suspicious for atelectatic versus early infiltrative changes..
[2017-07-16 17:47] VITALS: BP 132/83
[2017-07-16] MEDS ORDERED: D50W (25GM) Syringe IV PRN (17:47)
--- NOTE | 2017-07-17 15:30 | Discharge Summary ---
Providers - Providers Date of Admission: 07/13/17 20:05 Attending physician: ESPINOZA BUCHANAN 07/14/17 10:31 Consult to Wound/ET Nurse [CONS] Routine Reason For Exam: wound eval 07/14/17 21:15 Consult to Case Management [CONS] Routine Services Needed at Discharge: Other Notified:: Case management Comment:: please obtain working number for family 07/15/17 06:27 Consult to Physician [CONS] Routine Consulting Provider: NIK NASH Reason For Exam: Fevers Place consult to:: Dr. Segura Notified:: Y Was contact made?: Yes If yes, spoke with:: DR PAYNE Time called:: 09:15 07/16/17 17:47 Consult to Dietitian/Nutrition [CONS] Routine Physician Instructions: Reason For Exam: Reason for Consult: Diet education Primary care physician: APPIAN DEVELOPER Hospitalization Condition: Fair Hospital course: Patient is a 62-year-old woman with a (per , she had congential heart disease and repair when she was around 12 yrs old), hypertension, diabetes mellitus, dyslipidemia and tobacco dependency who presents with altered mental status after being found unresponsive by family. Patient was found to have a Blood glucose was 46. Chest x-ray read as no acute findings. Urinalysis is not indicative of UTI. She was eventually intubated with the patient as follows : Emergency Provider: RITCHIE HU Date: 07/13/17, "Called by respiratory therapist for assistance intubating patient in the ED. Patient in respiratory failure, attempted intubations by ED physician. Patient was being ventilated via bag/mask on my arrival. O2 sat around 88-89%. Direct laryngoscopy was performed with carter 3 blade. Oropharynx suctioned. Cricoid pressure applied showing grade 2 view of vocal cords with fair amount of edema and bloody secretions to posterior oropharynx. Bougie was passed thorough vocal cords and endotracheal tube was inserted over bougie. Tube passed easily with no obstruction. Bougie removed and patient ventilated using ambubag to the tube. good color change with CO2 detector and bilateral breath sounds were noted. O2 sat increased to 100% post intubation" per anesthesiologist Dr. Deion Rodas -Acute hypoxic respiratory failure s/p Intubation most likely due to hypoglycemia coma, no prior history in our EMR, I called the spouse Mr. Johnny Turner but the number in our EMR in nonfunctional, : Consulted Dr. Salazar -Hypoglycemic coma, bg improved: Change dextrose 10% IV fluids -Acute metabolic encephalopathy, herhome medications does not list any specific diabetes mellitus medication; therefore, I don't know what she took -Acute respiratory acidosis: Continue mechanical ventilator, follow-up ABGs -Acute renal failure most likely due to ATN with hypotension, without a known baseline: Treat with fluid resuscitation, he has history of coronary artery disease I do not know if she has a history of CHF; therefore, carefully monitor for fluid overload -Mild transaminitis likely due to shock liver/hypotension, should improve with blood pressure -SIRS with probable sepsis, no source at this particular time -DVT prophylaxis: Added subcutaneous heparin Full code NEW issue is fevers: Suspect aspiration pneumonia, abx started and I consulted Infectious Disease. I called at new number [phone] and spoke with him, she had pig valve placed when patient was 12, no cabg. She has crohn on daily prednisone 20mg day and colectomy. pcp mariah. for dm, regular and n insulin. when he found her "blood sugar was 47". When placed on Humira, at [facility] 2 years they put her on 25 n morning and 25 N insulin at night. He really doesn't know why blood sugars were low. When he found that her blood sugars were 47 he initially gave then 10 r and 15 n insulin, then he gave her orange juice and prednisone. He was educated and noted his error for next time. Also he report his "stretch her throat twice". I am assuming esophageal dilation. 07/16/17: Extubated 07/15/17, doing better, start diet, d/c johnson, She still not sure what went wrong, maybe she didn't eat enough. If blood glucose stable, will d/c tomorrow====?pt left AMA Disposition: DC-07 LEFT AGAINST MED ADVICE Core Measure Documentation - Palliative Care Palliative Care/ Comfort Measures: Not Applicable - Core Measures Any of the following diagnoses?: none - VTE Discharge Requirements Deep Vein Thrombosis/Pulmonary Embolism Present on Admission: No Has pt received <5 days of overlap therapy or INR<2.0: No Anticoagulant overlap therapy prescribed at discharge: No Contraindication No Overlap Therapy order at DC: Not Indicated Exam - Constitutional Vitals: Temp Pulse Resp BP Pulse Ox 99.3 F 99 H 18 132/83 98 07/16/17 17:00 07/16/17 17:00 07/16/17 17:00 07/16/17 17:00 07/16/17 17:00 Plan Follow up with: PRIMARY CARE, [Primary Care Provider] - 3-5 Days Forms: AMA Form
== END 2017-07-16 19:30 | disposition left against medical advice (07) | DRG 871 ==
LOC: ED 16:57 → CC1 20:05 → 4A 07-15 15:39
PROVIDERS: ADMIT Internal Medicine; ATTEND Internal Medicine
PROC: 5A1945Z Respiratory Ventilation, 24-96 Consecutive Hours (ICD-10-PCS; principal; 2017-07-13)
PROC: 0BH17EZ Insertion of Endotracheal Airway into Trachea, Via Natural or Artificial Opening (ICD-10-PCS; 2017-07-13)
PROC: 4A033R1 Measurement of Arterial Saturation, Peripheral, Percutaneous Approach (ICD-10-PCS; 2017-07-13)
PROC: 5A09357 Assistance with Respiratory Ventilation, Less than 24 Consecutive Hours, Continuous Positive Airway Pressure (ICD-10-PCS; 2017-07-13)
PROC: 0CJS8ZZ Inspection of Larynx, Via Natural or Artificial Opening Endoscopic (ICD-10-PCS; 2017-07-13)
DX: A41.9 Sepsis, unspecified organism (principal); J96.01 Acute respiratory failure with hypoxia; E11.641 Type 2 diabetes mellitus with hypoglycemia with coma; G93.41 Metabolic encephalopathy; N17.0 Acute kidney failure with tubular necrosis; K72.01 Acute and subacute hepatic failure with coma; J69.0 Pneumonitis due to inhalation of food and vomit; L97.429 Non-pressure chronic ulcer of left heel and midfoot with unspecified severity; E87.2 Acidosis; K50.90 Crohn's disease, unspecified, without complications; I10 Essential (primary) hypertension; F17.200 Nicotine dependence, unspecified, uncomplicated; J45.909 Unspecified asthma, uncomplicated; E11.621 Type 2 diabetes mellitus with foot ulcer; E78.5 Hyperlipidemia, unspecified; I95.9 Hypotension, unspecified; I25.10 Atherosclerotic heart disease of native coronary artery without angina pectoris; I25.2 Old myocardial infarction; Z88.0 Allergy status to penicillin; Z95.1 Presence of aortocoronary bypass graft; Z82.49 Family history of ischemic heart disease and other diseases of the circulatory system; Z79.82 Long term (current) use of aspirin; Z79.899 Other long term (current) drug therapy; Z95.3 Presence of xenogenic heart valve
CPT/HCPCS: 36415; 71010; 71020; 80048; 80053; 80074; 81001; 82140; 82803; 82962; 83735; 84484; 85007; 85025; 85027; 85379; 85610; 85730; 86140; 87040; 93005; 93010; 94002; 94003; 94644; 99291; 99406; C9113; J0330; J0360; J1644; J1956; J2704; J3010; J3370; J3475; J7030; J7040; J7050

== ENCOUNTER 2017-08-30 06:05 | Inpatient (IN) | payer OTHER ==
[2017-08-30] MEDS ORDERED: NACL 0.9% 500 ML 500 ML IV ONE (06:17)
[2017-08-30] MEDS ORDERED: NACL 0.9% 1000 ML 1,000 ML ONE (06:19)
--- NOTE | 2017-08-30 06:45 | XRay Report ---
FINAL REPORT EXAM: XR CHEST 1V AP HISTORY: possible Sepsis TECHNIQUE: A portable upright view the chest was obtained. Comparison is made the study of 07/16/2017. FINDINGS: Heart size and mediastinum appear normal. There are no localized infiltrates. Pleural fluid is not seen. The bones and soft tissues do not show any acute changes. IMPRESSION: No active chest disease.
[2017-08-30 07:05] LABS: Hematocrit 35.7 % (30.3-42.9); Hemoglobin 11.4 gm/dl (10.1-14.3); Mean Corpuscular HGB Conc 32 % (30-34); Mean Corpuscular Hemoglobin 27 pg (28-32); Mean Corpuscular Volume 84 fl (79-97); Platelet Count 179 K/mm3 (140-440); Red Blood Count 4.24 M/mm3 (3.65-5.03); Red Cell Distribution Width 15.9 % (13.2-15.2); White Blood Count 9.2 K/mm3 (4.5-11.0)
[2017-08-30 07:17] LABS: INR 1.03 (0.87-1.13)
[2017-08-30 07:24] LABS: Alanine Aminotransferase 18 units/L (7-56); Albumin 3.2 g/dL (3.9-5); Alkaline Phosphatase 82 units/L (35-129); Anion Gap 20 mmol/L; BUN/Creatinine Ratio 7; Blood Urea Nitrogen 7 mg/dL (7-17); Calcium 8.8 mg/dL (8.4-10.2); Carbon Dioxide 25 mmol/L (22-30); Chloride 94.6 mmol/L (98-107); Glucose 214 mg/dL (65-100); Sodium 137 mmol/L (137-145); Total Protein 6.5 g/dL (6.3-8.2)
[2017-08-30 07:27] LABS: Potassium 2.9 mmol/L (3.6-5.0)
[2017-08-30 08:08] LABS: Basophils % (Manual) 0 % (0.0-1.8); Blastocytes % (Manual) 0 %; Eosinophils % (Manual) 0 % (0.0-4.3)
[2017-08-30 08:12] LABS: Anisocytosis Few; Diff Status Complete
--- NOTE | 2017-08-30 08:14 | Emergency Department Report ---
HPI - General Chief Complaint: Altered Mental Status Time Seen by Provider: 08/30/17 07:49 - HPI HPI: Room 24 The patient is a 62-year-old female presented with a chief complaint of altered mental status. Family says yesterday the patient began "not behaving like herself." The son states the patient "couldn't finish a whole sentence." Patient complained of right hip pain since yesterday. There is no history of trauma or fevers at home. There is no history of nausea or vomiting at home. The patient was taken to a [facility] where she was then transferred to the ED for a higher level of care/evaluation. Patient was found to be febrile there and had an episode of nausea and vomiting Location: Mental state Duration: Constant since yesterday Quality: Altered mental status Severity: Moderate Modifying factors: [see above] Context: [see above] Mode of transportation: [not driving] ED Past Medical Hx - Past Medical History Previous Medical History?: Yes Hx Hypertension: Yes Hx Heart Attack/AMI: Yes Hx Diabetes: Yes Hx Arthritis: Yes (rheumatoid) Hx COPD: Yes Additional medical history: valve replacement iwth stent placement, Chrohns, asthma. pulmonary valve regurgitation. pulmonary nodule - Surgical History Past Surgical History?: Yes Hx Coronary Stent: Yes Hx Cholecystectomy: Yes Hx Appendectomy: Yes Additional Surgical History: Heart valve replacement with stents - Family History Family history: no significant - Social History Smoking Status: Former Smoker (none 1 month) Substance Use Type: None - Medications Home Medications: Home Medications Medication Instructions Recorded Confirmed Last Taken Type Albuterol Sulfate [Ventolin HFA] 2 puff IH Q4H PRN 07/14/17 07/14/17 Unknown History Aspirin [Aspirin BABY CHEW TAB] 81 mg PO QDAY 07/14/17 07/14/17 Unknown History Cyanocobalamin (Vitamin B-12) 1,000 mcg PO QDAY 07/14/17 07/14/17 Unknown History [Vitamin B-12] Gabapentin [Neurontin] 300 mg PO QHS 07/14/17 07/14/17 Unknown History LORazepam [Ativan] 1 mg PO QHS 07/14/17 07/14/17 Unknown History QUEtiapine [SEROquel] 100 mg PO QHS 07/14/17 07/14/17 Unknown History Simvastatin [Zocor TAB] 10 mg PO QHS 07/14/17 07/14/17 Unknown History amLODIPine [Norvasc] 5 mg PO DAILY 07/14/17 07/14/17 Unknown History ED Review of Systems ROS: Stated complaint: FEVER Other details as noted in HPI Comment: All other systems reviewed and negative Constitutional: fever Eyes: denies: eye pain, eye discharge, vision change ENT: denies: ear pain, throat pain Respiratory: denies: cough, shortness of breath, wheezing Cardiovascular: denies: chest pain, palpitations Endocrine: no symptoms reported Gastrointestinal: nausea, vomiting Genitourinary: denies: urgency, dysuria, discharge Musculoskeletal: denies: back pain, joint swelling, arthralgia Skin: denies: rash, lesions Neurological: confusion Psychiatric: denies: anxiety, depression Hematological/Lymphatic: denies: easy bleeding, easy bruising Physical Exam - Physical Exam Vital Signs: Vital Signs 08/30/17 06:21 Temperature 101.8 F H Pulse Rate 117 H Respiratory 18 Rate Blood Pressure 124/72 O2 Sat by Pulse 93 Oximetry Physical Exam: GENERAL: The patient is well-developed well-nourished female lying on a stretcher not appearing to be in acute distress. [] HEENT: Normocephalic. Atraumatic. Extraocular motions are intact. Patient has moist mucous membranes. NECK: Supple. No meningitic signs are noted. CHEST/LUNGS: Clear to auscultation. There is no respiratory distress noted. HEART/CARDIOVASCULAR: Regular. There is tachycardia. There is no gallop rub or murmur. ABDOMEN: Abdomen is soft, nontender. Patient has normal bowel sounds. There is no abdominal distention. SKIN: There is no rash. There is no edema. There is no diaphoresis. NEURO: The patient is awake but not oriented to place. Patient attempts to answer questions but does not appear to be able to complete her thoughts. The patient is cooperative. The patient has no focal neurologic deficits. The patient has normal speech. Cranial nerves II through XII grossly intact, outsole beveler equal bilaterally MUSCULOSKELETAL: There is no evidence of acute injury. ED Course Vital Signs 08/30/17 06:21 Temperature 101.8 F H Pulse Rate 117 H Respiratory 18 Rate Blood Pressure 124/72 O2 Sat by Pulse 93 Oximetry - Consultations Consultation #1: 08/30/17 10:09 [facility] paged 08/30/17 10:[address] Amrita bledsoe to admit patient at [facility] 08/30/17 10:15 ED Medical Decision Making - Lab Data Result diagrams: 08/30/17 06:44 08/30/17 06:44 - EKG Data -: EKG Interpreted by Me EKG shows normal: sinus rhythm Rate: tachycardia (115 bpm) - EKG Data When compared to previous EKG there are: previous EKG unavailable - Radiology Data Radiology results: image reviewed (chest x-ray) interpreted by me: Chest [id number] right lower lobe infiltrate. No pneumothorax - Differential Diagnosis pneumonia, UTI, sepsis, ICH Critical care attestation.: If time is entered above; I have spent that time in minutes in the direct care of this critically ill patient, excluding procedure time. ED Disposition Clinical Impression: Altered mental status, Pneumonia, Fever Disposition: DC-09 OP ADMIT IP TO THIS HOSP Is pt being admited?: Yes Does the pt Need Aspirin: Yes Condition: Fair Instructions: Bacterial Pneumonia (ED) Referrals: PRIMARY CARE, [Primary Care Provider] - 3-5 Days Time of Disposition: 10:15 (hospitalist paged)
[2017-08-30] MEDS ORDERED: LEVAQUIN 750MG/150ML 750 MG/150 ML BAG IV ONE (08:20)
--- NOTE | 2017-08-30 08:48 | Cat Scan Report ---
Cranial CT without contrast. History: Altered mental status. Findings: There is no evidence of an acute hemorrhage or infarct. The posterior fossa is normal. The ventricles are normal in size and contour. There are no masses or extra-axial collections. Multiple areas of amorphous dural calcification are seen bilaterally. There is no extradural fluid. The calvarium is intact. There is partial calcification of the left mastoid air cells. Impression: 1. No acute intracranial findings. 2. Nonspecific bilateral dural calcifications. 3. Chronic left mastoiditis.
[2017-08-30] MEDS ORDERED: ATIVAN IV ONE (08:59)
[2017-08-30] MEDS ORDERED: ATIVAN ONE (09:02)
[2017-08-30 10:16] LABS: Bilirubin,Urine NEG (Negative); Blood,Urine NEG (Negative); Ketones,Urine 20 mg/dL (Negative); Leukocyte Esterase,Urine NEG (Negative); Nitrite,Urine NEG (Negative); Urobilinogen,Urine < 2.0 mg/dL (<2.0)
[2017-08-30 10:31] LABS: Bacteria,Urine 1+ /HPF (Negative); Mucus,Urine 1+ /HPF
[2017-08-30] MEDS ORDERED: TYLENOL PO PRN (10:39)
[2017-08-30] MEDS ORDERED: PROAIR IH PRN (10:42)
--- NOTE | 2017-08-30 10:45 | History and Physical Report ---
History of Present Illness Date of examination: 08/30/17 Date of admission: 08/30/2017 Chief complaint: Altered mental status History of present illness: Patient is a 62 is a year old -[place] female with a past medical history hypertension, diabetes, CHF, COPD presents by EMS to the emergency department with altered mental status. Patient confused at this time, therefore unable to provide detailed history. No family at bedside, I called family at waiting to call me back. Per ER physician and charts, patient came in for altered mental status X 2 days. Patient was found to be febrile and had an episode of nausea and vomiting. No reports of fever, chills, chest pain, seizure, trauma, loss of bowel or bladder continence or recent ill contacts. Past History Past Medical History: COPD, diabetes, hypertension Past Surgical History: Other (unable to obtained due to patient mental status) Family history: other (unable to obtained due to patient mental status) Medications and Allergies Allergies Allergy/AdvReac Type Severity Reaction Status Date / Time adalimumab [From Humira] Allergy Unknown Verified 08/30/17 06:31 doxycycline Allergy Unknown Verified 08/30/17 06:31 Penicillins Allergy Anaphylaxis Verified 07/13/17 17:23 Home Medications Medication Instructions Recorded Confirmed Last Taken Type Albuterol Sulfate [Ventolin HFA] 2 puff IH Q4H PRN 07/14/17 08/30/17 Unknown History Aspirin [Aspirin BABY CHEW TAB] 81 mg PO QDAY 07/14/17 08/30/17 Unknown History Cyanocobalamin (Vitamin B-12) 1,000 mcg PO QDAY 07/14/17 08/30/17 Unknown History [Vitamin B-12] Gabapentin [Neurontin] 300 mg PO QHS 07/14/17 08/30/17 Unknown History LORazepam [Ativan] 1 mg PO QHS 07/14/17 08/30/17 Unknown History Simvastatin [Zocor TAB] 10 mg PO QHS 07/14/17 08/30/17 Unknown History amLODIPine [Norvasc] 5 mg PO DAILY 07/14/17 08/30/17 Unknown History Beclomethasone Dipropionate [Qvar] 8.7 gm IH BID 08/30/17 08/30/17 Unknown History Diphenoxylate HCl/Atropine 1 each PO QID PRN 08/30/17 08/30/17 Unknown History [Diphenoxylate-Atrop 2.5-0.025] Insulin NPH Human Isophane 5 unit SQ AC 08/30/17 08/30/17 Unknown History [HumuLIN N] Insulin Regular, Human [HumuLIN R] 10 unit SQ BID 08/30/17 08/30/17 Unknown History predniSONE [Deltasone] 10 mg PO QDAY 08/30/17 08/30/17 Unknown History Active Meds: Active Medications Acetaminophen (Tylenol) 650 mg PO Q4H PRN PRN Reason: Pain MILD(1-3)/Fever >100.5/BROCK Albuterol (Proair) 2 puff IH Q4H PRN PRN Reason: Shortness Of Breath Amlodipine Besylate (Norvasc) 5 mg PO DAILY JEFF Aspirin (Baby Aspirin) 81 mg PO QDAY JEFF Bisacodyl (Dulcolax) 10 mg NM QDAY PRN PRN Reason: Constipation unrelieved by MOM Enoxaparin Sodium (Lovenox) 40 mg SUB-Q QDAY JEFF Gabapentin (Neurontin) 300 mg PO QHS JEFF Potassium Chloride (Kcl 10meq/100ml) 10 meq in 100 mls @ 100 mls/hr IV Q1H JEFF Stop: 08/30/17 14:59 Miscellaneous Medication (Cyanocobalamin (Vitamin B-12) [Vitamin B-12]) 1,000 mcg PO QDAY JEFF Miscellaneous Medication (Simvastatin) 10 mg PO QHS JEFF Quetiapine Fumarate (Seroquel) 100 mg PO QHS JEFF Review of Systems ROS unobtainable: due to mental status (unable to obtained due to patient mental status) Exam - Constitutional Vitals: Temp Pulse Resp BP Pulse Ox 100.3 F H 109 H 24 124/77 99 08/30/17 09:14 08/30/17 09:30 08/30/17 09:30 08/30/17 09:30 08/30/17 09:30 General appearance: Present: no acute distress, other (alert oriented to self) - EENT Eyes: Present: PERRL ENT: hearing intact - Neck Neck: Present: supple - Respiratory Respiratory: bilateral: CTA - Cardiovascular Rhythm: regular Heart Sounds: Present: S1 & S2 - Abdominal General gastrointestinal: Present: soft, non-tender Female genitourinary: Present: deferred - Rectal Rectal Exam: deferred - Integumentary Integumentary: Present: clear, warm, dry - Musculoskeletal Musculoskeletal: strength equal bilaterally - Psychiatric Psychiatric: other (confused ) - Neurologic Neurologic: moves all extremities - Allied Health Allied health notes reviewed: nursing Results - Labs CBC & Chem 7: 08/31/17 06:31 08/31/17 06:31 Labs: Laboratory Last Values WBC 9.2 K/mm3 (4.5-11.0) 08/30/17 06:44 RBC 4.24 M/mm3 (3.65-5.03) 08/30/17 06:44 Hgb 11.4 gm/dl (10.1-14.3) 08/30/17 06:44 Hct 35.7 % (30.3-42.9) 08/30/17 06:44 MCV 84 fl (79-97) 08/30/17 06:44 MCH 27 pg (28-32) L 08/30/17 06:44 MCHC 32 % (30-34) 08/30/17 06:44 RDW 15.9 % (13.2-15.2) H 08/30/17 06:44 Plt Count 179 K/mm3 (140-440) 08/30/17 06:44 [place] % (Auto) Plow Mechanic 08/30/17 06:44 Add Manual Diff Complete 08/30/17 06:44 Total Counted 100 08/30/17 06:44 Seg Neuts % (Manual) 63 % (40.0-70.0) 08/30/17 06:44 Band Neutrophils % 7.0 % 08/30/17 06:44 Lymphocytes % (Manual) 22 % (13.4-35.0) 08/30/17 06:44 Reactive Lymphs % (Man) 0 % 08/30/17 06:44 Monocytes % (Manual) 18 % (0.0-7.3) H 08/30/17 06:44 Eosinophils % (Manual) 0 % (0.0-4.3) 08/30/17 06:44 Basophils % (Manual) 0 % (0.0-1.8) 08/30/17 06:44 Metamyelocytes % 0 % 08/30/17 06:44 Myelocytes % 0 % 08/30/17 06:44 Promyelocytes % 0 % 08/30/17 06:44 Blast Cells % 0 % 08/30/17 06:44 Nucleated RBC % Not Reportable 08/30/17 06:44 Seg Neutrophils # Man 5.9 K/mm3 (1.8-7.7) 08/30/17 06:44 Band Neutrophils # 0.6 K/mm3 08/30/17 06:44 Lymphocytes # (Manual) 1.6 K/mm3 (1.2-5.4) 08/30/17 06:44 Abs React Lymphs (Man) 0.0 K/mm3 08/30/17 06:44 Monocytes # (Manual) 1.1 K/mm3 (0.0-0.8) H 08/30/17 06:44 Eosinophils # (Manual) 0.0 K/mm3 (0.0-0.4) 08/30/17 06:44 Basophils # (Manual) 0.0 K/mm3 (0.0-0.1) 08/30/17 06:44 Metamyelocytes # 0.0 K/mm3 08/30/17 06:44 Myelocytes # 0.0 K/mm3 08/30/17 06:44 Promyelocytes # 0.0 K/mm3 08/30/17 06:44 Blast Cells # 0.0 K/mm3 08/30/17 06:44 WBC Morphology Not Reportable 08/30/17 06:44 Hypersegmented Neuts Not Reportable 08/30/17 06:44 Hyposegmented Neuts Not Reportable 08/30/17 06:44 Hypogranular Neuts Not Reportable 08/30/17 06:44 Smudge Cells Not Reportable 08/30/17 06:44 Toxic Granulation Not Reportable 08/30/17 06:44 Toxic Vacuolation Not Reportable 08/30/17 06:44 Dohle Bodies Not Reportable 08/30/17 06:44 Pelger-Huet Anomaly Not Reportable 08/30/17 06:44 Martha Rods Not Reportable 08/30/17 06:44 Platelet Estimate Not Reportable 08/30/17 06:44 Clumped Platelets Not Reportable 08/30/17 06:44 Plt Clumps, EDTA Not Reportable 08/30/17 06:44 Large Platelets Not Reportable 08/30/17 06:44 Giant Platelets Not Reportable 08/30/17 06:44 Platelet Satelliting Not Reportable 08/30/17 06:44 Plt Morphology Comment Not Reportable 08/30/17 06:44 RBC Morphology Not Reportable 08/30/17 06:44 Dimorphic RBCs Not Reportable 08/30/17 06:44 Polychromasia Not Reportable 08/30/17 06:44 Hypochromasia Not Reportable 08/30/17 06:44 Poikilocytosis Not Reportable 08/30/17 06:44 Anisocytosis Few 08/30/17 06:44 Microcytosis Not Reportable 08/30/17 06:44 Macrocytosis Not Reportable 08/30/17 06:44 Spherocytes Not Reportable 08/30/17 06:44 Pappenheimer Bodies Not Reportable 08/30/17 06:44 Sickle Cells Not Reportable 08/30/17 06:44 Target Cells Not Reportable 08/30/17 06:44 Tear Drop Cells Not Reportable 08/30/17 06:44 Ovalocytes Not Reportable 08/30/17 06:44 Helmet Cells Not Reportable 08/30/17 06:44 [place] Bodies Not Reportable 08/30/17 06:44 [place] Rings Not Reportable 08/30/17 06:44 [place] Cells Not Reportable 08/30/17 06:44 Bite Cells Not Reportable 08/30/17 06:44 Crenated Cell Not Reportable 08/30/17 06:44 Elliptocytes Not Reportable 08/30/17 06:44 Acanthocytes (Spur) Not Reportable 08/30/17 06:44 Rouleaux Not Reportable 08/30/17 06:44 Hemoglobin C Crystals Not Reportable 08/30/17 06:44 Schistocytes Not Reportable 08/30/17 06:44 Malaria parasites Not Reportable 08/30/17 06:44 Daniel Bodies Not Reportable 08/30/17 06:44 Hem Pathologist Commnt No 08/30/17 06:44 PT 14.0 Sec. (12.2-14.9) 08/30/17 06:44 INR 1.03 (0.87-1.13) 08/30/17 06:44 VBG pH 7.536 (7.320-7.420) H 08/30/17 06:44 Sodium 137 mmol/L (137-145) 08/30/17 06:44 Potassium 2.9 mmol/L (3.6-5.0) L* 08/30/17 06:44 Chloride 94.6 mmol/L (98-107) L 08/30/17 06:44 Carbon Dioxide 25 mmol/L (22-30) 08/30/17 06:44 Anion Gap 20 mmol/L 08/30/17 06:44 BUN 7 mg/dL (7-17) 08/30/17 06:44 Creatinine 1.0 mg/dL (0.7-1.2) 08/30/17 06:44 Estimated GFR > 60 ml/min 08/30/17 06:44 BUN/Creatinine Ratio 7 % 08/30/17 06:44 Glucose 214 mg/dL (65-100) H 08/30/17 06:44 Lactic Acid 1.30 mmol/L (0.7-2.0) 08/30/17 06:44 Calcium 8.8 mg/dL (8.4-10.2) 08/30/17 06:44 Total Bilirubin 1.00 mg/dL (0.1-1.2) 08/30/17 06:44 AST 23 units/L (5-40) 08/30/17 06:44 ALT 18 units/L (7-56) 08/30/17 06:44 Alkaline Phosphatase 82 units/L (35-129) 08/30/17 06:44 Total Protein 6.5 g/dL (6.3-8.2) 08/30/17 06:44 Albumin 3.2 g/dL (3.9-5) L 08/30/17 06:44 Albumin/Globulin Ratio 1.0 % 08/30/17 06:44 Urine Color Yellow (Yellow) 08/30/17 07:59 Urine Turbidity Clear (Clear) 08/30/17 07:59 Urine pH 7.0 (5.0-7.0) 08/30/17 07:59 Ur Specific [place] 1.018 (1.003-1.030) 08/30/17 07:59 Urine Protein 30 mg/dl mg/dL (Negative) 08/30/17 07:59 Urine Glucose (UA) 150 mg/dL (Negative) 08/30/17 07:59 Urine Ketones 20 mg/dL (Negative) 08/30/17 07:59 Urine Blood Neg (Negative) 08/30/17 07:59 Urine Nitrite Neg (Negative) 08/30/17 07:59 Urine Bilirubin Neg (Negative) 08/30/17 07:59 Urine Urobilinogen < 2.0 mg/dL (<2.0) 08/30/17 07:59 Ur Leukocyte Esterase Neg (Negative) 08/30/17 07:59 Urine WBC (Auto) 2.0 /HPF (0.0-6.0) 08/30/17 07:59 Urine RBC (Auto) 2.0 /HPF (0.0-6.0) 08/30/17 07:59 U Epithel Cells (Auto) 3.0 /HPF (0-13.0) 08/30/17 07:59 Urine Bacteria (Auto) 1+ /HPF (Negative) 08/30/17 07:59 Urine Mucus 1+ /HPF 08/30/17 07:59 Assessment and Plan Assessment and plan: Patient is a 62 is a year old -[place] female with a past medical history hypertension, diabetes, CHF, COPD presents by EMS to the emergency department with altered mental status. Patient confused at this time, therefore unable to provide detailed history. Patient was found to be febrile and had an episode of nausea and vomiting. No reports of fever, chills, chest pain, seizure, trauma, loss of bowel or bladder continence or recent ill contacts. Acute encephalopathy Most likely due to pneumonia Vs psychosis Ct of the head no acute intracranial process Treat underline cause Sepsis Blood cultures collected prior to antibiotic Follow blood cultures Aggressive IV fluid resuscitation Initiated empiric IV Levaquin Supportive care Right lower lobe Pneumonia Chest x-ray revealed subtle right lower lung pneumonia Started on IV Levaquin Diabetes mellitus Accu-Chek before meals and at bedtime Sliding scale insulin/NovoLog ADA carbohydrate consistent diet Hypertensive urgency Continue home antihypertensive medications Closely monitor blood pressure Hx of psychosis Resume home antipsychotic pills Closely monitor Sever hypokalemia Most likely due to vomiting replaced Closely monitor electrolytes Malnutrition Dietitian consulted DVT prophylaxis Lovenox Advance Directives: Yes VTE prophylaxis?: Chemical Contraindication Mechanical VTE Prophylaxis: Treatment Not Indicated Plan of care discussed with patient/family: Yes
--- NOTE | 2017-08-30 10:57 | XRay Report ---
PORTABLE CHEST INDICATION: Fever. COMPARISON: 6:28 AM earlier today. FINDINGS: Portable, frontal chest radiograph, 10:38 AM, 08/30/2017 suspicious for approximately 5.5 cm right lower lung hazy opacity/pneumonia laterally with minimal fluid or thickening now marginating the right minor fissure. No large pleural effusions or CHF. Stable cardiomediastinal silhouette with nonspecific AP window and superior mediastinal fullness. EKG leads. Stable bones. CONCLUSION: Subtle right lower lung pneumonia suspected and few other incidental findings, as above. Please correlate. Thank you for the opportunity to participate in this patient's care.
[2017-08-30] MEDS ORDERED: D50W (25GM) Syringe IV PRN (11:00)
[2017-08-30] MEDS ORDERED: DULCOLAX PR PRN (11:00)
[2017-08-30] MEDS ORDERED: ZOFRAN IM PRN (11:00)
[2017-08-30] MEDS ORDERED: NACL 0.9% 250ML 250 ML ONE (11:00)
[2017-08-30] MEDS: KCL 10MEQ/100ML 10 MEQ/100 ML BAG IV SCH ×3 (11:04→16:22)
[2017-08-30] MEDS ORDERED: PROVENTIL IH PRN (11:27)
[2017-08-30] MEDS ORDERED: KCL 10MEQ/100ML 10 MEQ/100 ML BAG IV ONE (12:10)
[2017-08-30] MEDS ORDERED: NOVOLOG SUB-Q ONE (12:25)
[2017-08-30] MEDS: NOVOLOG SUB-Q SCH ×3 (12:37→21:46)
[2017-08-30] MEDS: DELTASONE PO SCH (15:28)
[2017-08-30] MEDS ORDERED: K-DUR PO ONE (18:00)
[2017-08-30] MEDS: PULMICORT IH SCH (20:05)
[2017-08-30] MEDS: PRAVACHOL PO SCH (21:29)
[2017-08-30] MEDS: NEURONTIN PO SCH (21:29)
[2017-08-30] MEDS ORDERED: NON-FORMULARY (Simvastatin 10 MG) PO SCH (22:00)
[2017-08-30] MEDS ORDERED: NON-FORMULARY (Beclomethasone Dipropionate [Qvar] 8.7 GM) IH SCH (22:00)
[2017-08-31 01:55] LABS: Urine Drugs of Abuse Note Disclamer
[2017-08-31 06:54] LABS: Mean Corpuscular HGB Conc 30 % (30-34); Mean Corpuscular Volume 85 fl (79-97); Platelet Count 191 K/mm3 (140-440); Red Blood Count 4.28 M/mm3 (3.65-5.03); Red Cell Distribution Width 15.9 % (13.2-15.2); White Blood Count 6.6 K/mm3 (4.5-11.0)
[2017-08-31 06:59] LABS: Hematocrit 36.3 % (30.3-42.9); Mean Corpuscular Hemoglobin 26 pg (28-32)
[2017-08-31 07:07] LABS: Anion Gap 20 mmol/L; BUN/Creatinine Ratio 11; Blood Urea Nitrogen 11 mg/dL (7-17); Calcium 8.1 mg/dL (8.4-10.2); Carbon Dioxide 24 mmol/L (22-30); Chloride 98.4 mmol/L (98-107); Glucose 273 mg/dL (65-100); Sodium 138 mmol/L (137-145)
[2017-08-31 07:09] LABS: Potassium 4.6 mmol/L (3.6-5.0)
[2017-08-31] MEDS: PULMICORT IH SCH ×2 (07:26→20:03)
[2017-08-31 07:54] LABS: Basophils % (Manual) 0 % (0.0-1.8); Blastocytes % (Manual) 0 %; Eosinophils % (Manual) 0 % (0.0-4.3)
[2017-08-31 07:55] LABS: Anisocytosis 1+; Burr Cells Few; Diff Status Complete; Elliptocytes Rare; Ovalocytes Few; Poikilocytosis 1+; Polychromasia Few; Tear Drop Cells Rare
[2017-08-31] MEDS: NOVOLOG SUB-Q SCH ×4 (08:07→21:59)
[2017-08-31] MEDS: DELTASONE PO SCH (09:43)
[2017-08-31] MEDS: BABY ASPIRIN PO SCH (09:43)
[2017-08-31] MEDS: VITAMIN B-12 PO SCH (09:44)
[2017-08-31] MEDS: K-DUR PO SCH (09:44)
[2017-08-31] MEDS: LOVENOX SUB-Q SCH (09:44)
--- NOTE | 2017-08-31 09:55 | Progress Note ---
Assessment and Plan Assessment and plan: Patient is a 62 is a year old -[place] female with a past medical history hypertension, diabetes, CHF, COPD presents by EMS to the emergency department with altered mental status. Patient confused at this time, therefore unable to provide detailed history. Patient was found to be febrile and had an episode of nausea and vomiting. No reports of fever, chills, chest pain, seizure, trauma, loss of bowel or bladder continence or recent ill contacts. Acute metabolic encephalopathy Most likely due to pneumonia Ct of the head no acute intracranial process Treat underline cause Sepsis Follow-up cultures, continue antibiotics Aspiration pneumonia in right lower lobe Patient had multiple episodes of nausea vomiting, most likely aspirated Continue antibiotics, she is improving Diabetes mellitus Accu-Chek before meals and at bedtime Sliding scale insulin/NovoLog ADA carbohydrate consistent diet htn continue meds, well controlled Hx of psychosis Resume home antipsychotic pills Severe hypokalemi bowel a Most likely due to vomiting replaced Closely monitor electrolytes Mild to moderate Malnutrition Dietitian consulted DVT prophylaxis Lovenox History Interval history: Mentation is improved. She is back to baseline. She denies nausea vomiting today. Denies shortness of breath. Hospitalist Physical - Physical exam Narrative exam: General.: Appears well, no distress, nontoxic HEENT: Moist mucous membranes, extraocular muscles intact, no lymphadenopathy Neck: supple Cardiac: S1-S2 heard Lungs: clear to auscultation bilaterally Abdomen: soft , nontender, nondistended, bowel sounds positive Extremities: no edema clubbing or cyanosis Skin: no rash or lesions Neurologic: no gross focal deficits Psych: appropriate behavior, appropriate mood, corporative, judgment intact - Constitutional Vitals: Temp Pulse Resp BP Pulse Ox 97.8 F 110 H 18 110/65 99 08/31/17 07:34 08/31/17 07:46 08/31/17 07:46 08/31/17 07:34 08/30/17 23:31 General appearance: Present: no acute distress, other (alert oriented to self) Results - Labs CBC & Chem 7: 08/31/17 06:31 08/31/17 06:31 Labs: Laboratory Last Values WBC 6.6 K/mm3 (4.5-11.0) 08/31/17 06:31 RBC 4.28 M/mm3 (3.65-5.03) 08/31/17 06:31 Hgb 11.0 gm/dl (10.1-14.3) 08/31/17 06:31 Hct 36.3 % (30.3-42.9) 08/31/17 06:31 MCV 85 fl (79-97) 08/31/17 06:31 MCH 26 pg (28-32) L 08/31/17 06:31 MCHC 30 % (30-34) 08/31/17 06:31 RDW 15.9 % (13.2-15.2) H 08/31/17 06:31 Plt Count 191 K/mm3 (140-440) 08/31/17 06:31 [place] % (Auto) Director Of Cardiology Service Line 08/31/17 06:31 Add Manual Diff Complete 08/31/17 06:31 Total Counted 100 08/31/17 06:31 Seg Neuts % (Manual) 66.0 % (40.0-70.0) 08/31/17 06:31 Band Neutrophils % 1.0 % 08/31/17 06:31 Lymphocytes % (Manual) 20.0 % (13.4-35.0) 08/31/17 06:31 Reactive Lymphs % (Man) 0 % 08/31/17 06:31 Monocytes % (Manual) 10.0 % (0.0-7.3) H 08/31/17 06:31 Eosinophils % (Manual) 0 % (0.0-4.3) 08/31/17 06:31 Basophils % (Manual) 0 % (0.0-1.8) 08/31/17 06:31 Metamyelocytes % 3.0 % 08/31/17 06:31 Myelocytes % 0 % 08/31/17 06:31 Promyelocytes % 0 % 08/31/17 06:31 Blast Cells % 0 % 08/31/17 06:31 Nucleated RBC % Not Reportable 08/31/17 06:31 Seg Neutrophils # Man 4.4 K/mm3 (1.8-7.7) 08/31/17 06:31 Band Neutrophils # 0.1 K/mm3 08/31/17 06:31 Lymphocytes # (Manual) 1.3 K/mm3 (1.2-5.4) 08/31/17 06:31 Abs React Lymphs (Man) 0.0 K/mm3 08/31/17 06:31 Monocytes # (Manual) 0.7 K/mm3 (0.0-0.8) 08/31/17 06:31 Eosinophils # (Manual) 0.0 K/mm3 (0.0-0.4) 08/31/17 06:31 Basophils # (Manual) 0.0 K/mm3 (0.0-0.1) 08/31/17 06:31 Metamyelocytes # 0.2 K/mm3 08/31/17 06:31 Myelocytes # 0.0 K/mm3 08/31/17 06:31 Promyelocytes # 0.0 K/mm3 08/31/17 06:31 Blast Cells # 0.0 K/mm3 08/31/17 06:31 WBC Morphology Not Reportable 08/31/17 06:31 Hypersegmented Neuts Not Reportable 08/31/17 06:31 Hyposegmented Neuts Not Reportable 08/31/17 06:31 Hypogranular Neuts Not Reportable 08/31/17 06:31 Smudge Cells Not Reportable 08/31/17 06:31 Toxic Granulation Not Reportable 08/31/17 06:31 Toxic Vacuolation Not Reportable 08/31/17 06:31 Dohle Bodies Not Reportable 08/31/17 06:31 Pelger-Huet Anomaly Not Reportable 08/31/17 06:31 Martha Rods Not Reportable 08/31/17 06:31 Platelet Estimate Appears normal 08/31/17 06:31 Clumped Platelets Not Reportable 08/31/17 06:31 Plt Clumps, EDTA Not Reportable 08/31/17 06:31 Large Platelets Not Reportable 08/31/17 06:31 Giant Platelets Not Reportable 08/31/17 06:31 Platelet Satelliting Not Reportable 08/31/17 06:31 Plt Morphology Comment Not Reportable 08/31/17 06:31 RBC Morphology Not Reportable 08/31/17 06:31 Dimorphic RBCs Not Reportable 08/31/17 06:31 Polychromasia Few 08/31/17 06:31 Hypochromasia Not Reportable 08/31/17 06:31 Poikilocytosis 1+ 08/31/17 06:31 Anisocytosis 1+ 08/31/17 06:31 Microcytosis Not Reportable 08/31/17 06:31 Macrocytosis Not Reportable 08/31/17 06:31 Spherocytes Not Reportable 08/31/17 06:31 Pappenheimer Bodies Not Reportable 08/31/17 06:31 Sickle Cells Not Reportable 08/31/17 06:31 Target Cells Not Reportable 08/31/17 06:31 Tear Drop Cells Rare 08/31/17 06:31 Ovalocytes Few 08/31/17 06:31 Helmet Cells Not Reportable 08/31/17 06:31 [place] Bodies Not Reportable 08/31/17 06:31 [place] Rings Not Reportable 08/31/17 06:31 [place] Cells Few 08/31/17 06:31 Bite Cells Not Reportable 08/31/17 06:31 Crenated Cell Not Reportable 08/31/17 06:31 Elliptocytes Rare 08/31/17 06:31 Acanthocytes (Spur) Not Reportable 08/31/17 06:31 Rouleaux Not Reportable 08/31/17 06:31 Hemoglobin C Crystals Not Reportable 08/31/17 06:31 Schistocytes Not Reportable 08/31/17 06:31 Malaria parasites Not Reportable 08/31/17 06:31 Daniel Bodies Not Reportable 08/31/17 06:31 Hem Pathologist Commnt No 08/31/17 06:31 PT 14.0 Sec. (12.2-14.9) 08/30/17 06:44 INR 1.03 (0.87-1.13) 08/30/17 06:44 VBG pH 7.536 (7.320-7.420) H 08/30/17 06:44 Sodium 138 mmol/L (137-145) 08/31/17 06:31 Potassium 4.6 mmol/L (3.6-5.0) D 08/31/17 06:31 Chloride 98.4 mmol/L (98-107) 08/31/17 06:31 Carbon Dioxide 24 mmol/L (22-30) 08/31/17 06:31 Anion Gap 20 mmol/L 08/31/17 06:31 BUN 11 mg/dL (7-17) 08/31/17 06:31 Creatinine 1.0 mg/dL (0.7-1.2) 08/31/17 06:31 Estimated GFR > 60 ml/min 08/31/17 06:31 BUN/Creatinine Ratio 11 % 08/31/17 06:31 Glucose 273 mg/dL (65-100) H 08/31/17 06:31 POC Glucose 248 (70-105) H 08/31/17 05:59 Lactic Acid 1.40 mmol/L (0.7-2.0) 08/30/17 10:52 Calcium 8.1 mg/dL (8.4-10.2) L 08/31/17 06:31 Total Bilirubin 1.00 mg/dL (0.1-1.2) 08/30/17 06:44 AST 23 units/L (5-40) 08/30/17 06:44 ALT 18 units/L (7-56) 08/30/17 06:44 Alkaline Phosphatase 82 units/L (35-129) 08/30/17 06:44 Total Protein 6.5 g/dL (6.3-8.2) 08/30/17 06:44 Albumin 3.2 g/dL (3.9-5) L 08/30/17 06:44 Albumin/Globulin Ratio 1.0 % 08/30/17 06:44 Urine Color Yellow (Yellow) 08/30/17 07:59 Urine Turbidity Clear (Clear) 08/30/17 07:59 Urine pH 7.0 (5.0-7.0) 08/30/17 07:59 Ur Specific [place] 1.018 (1.003-1.030) 08/30/17 07:59 Urine Protein 30 mg/dl mg/dL (Negative) 08/30/17 07:59 Urine Glucose (UA) 150 mg/dL (Negative) 08/30/17 07:59 Urine Ketones 20 mg/dL (Negative) 08/30/17 07:59 Urine Blood Neg (Negative) 08/30/17 07:59 Urine Nitrite Neg (Negative) 08/30/17 07:59 Urine Bilirubin Neg (Negative) 08/30/17 07:59 Urine Urobilinogen < 2.0 mg/dL (<2.0) 08/30/17 07:59 Ur Leukocyte Esterase Neg (Negative) 08/30/17 07:59 Urine WBC (Auto) 2.0 /HPF (0.0-6.0) 08/30/17 07:59 Urine RBC (Auto) 2.0 /HPF (0.0-6.0) 08/30/17 07:59 U Epithel Cells (Auto) 3.0 /HPF (0-13.0) 08/30/17 07:59 Urine Bacteria (Auto) 1+ /HPF (Negative) 08/30/17 07:59 Urine Mucus 1+ /HPF 08/30/17 07:59 Urine Opiates Screen Presumptive negative 08/31/17 01:00 Urine Methadone Screen Presumptive negative 08/31/17 01:00 Ur Barbiturates Screen Presumptive negative 08/31/17 01:00 Ur Phencyclidine Scrn Presumptive negative 08/31/17 01:00 Ur Amphetamines Screen Presumptive negative 08/31/17 01:00 U Benzodiazepines Scrn Presumptive negative 08/31/17 01:00 Urine Cocaine Screen Presumptive negative 08/31/17 01:00 U Marijuana (THC) Screen Presumptive negative 08/31/17 01:00 Drugs of Abuse Note Disclamer 08/31/17 01:00
[2017-08-31] MEDS ORDERED: NON-FORMULARY (Cyanocobalamin (Vitamin B-12) [Vitamin B-12] 1,000 MCG) PO SCH (10:00)
[2017-08-31] MEDS ORDERED: LEVAQUIN 750MG/150ML 750 MG/150 ML BAG IV SCH (10:00)
[2017-08-31] MEDS: NORVASC PO SCH (10:23)
[2017-08-31] MEDS: PRAVACHOL PO SCH (21:57)
[2017-08-31] MEDS: NEURONTIN PO SCH (21:58)
[2017-08-31] MEDS ORDERED: LEVEMIR SUB-Q SCH (22:00)
[2017-09-01] MEDS: PULMICORT IH SCH (07:42)
[2017-09-01] MEDS: NOVOLOG SUB-Q SCH ×2 (08:37→11:55)
[2017-09-01 08:41] VITALS: BP 104/68
--- NOTE | 2017-09-01 09:08 | Discharge Summary ---
Providers - Providers Date of Admission: 08/30/17 10:39 Attending physician: KATIE HARVEY MD 08/30/17 14:50 Consult to Dietitian/Nutrition [CONS] Routine Physician Instructions: Reason For Exam: Reason for Consult: Malnutrition Primary care physician: [employer] Hospitalization Condition: Fair Hospital course: Patient is a 62 is a year old -[place]enian female with a past medical history hypertension, diabetes, CHF, COPD presents by EMS to the emergency department with altered mental status. Patient confused at this time, therefore unable to provide detailed history. Patient was found to be febrile and had an episode of nausea and vomiting. No reports of fever, chills, chest pain, seizure, trauma, loss of bowel or bladder continence or recent ill contacts. Acute metabolic encephalopathy Most likely due to pneumonia Ct of the head no acute intracranial process Treat underline cause Sepsis Follow-up cultures, continue antibiotics Aspiration pneumonia in right lower lobe Patient had multiple episodes of nausea vomiting, most likely aspirated Continue antibiotics, she is improving Diabetes mellitus Accu-Chek before meals and at bedtime Sliding scale insulin/NovoLog ADA carbohydrate consistent diet htn continue meds, well controlled Hx of psychosis Resume home antipsychotic pills Severe hypokalemi bowel a Most likely due to vomiting replaced Closely monitor electrolytes Mild to moderate Malnutrition Dietitian consulted DVT prophylaxis Lovenox Disposition: DC- TO HOME OR SELFCARE Time spent for discharge: 33 minutes Core Measure Documentation - Palliative Care Palliative Care/ Comfort Measures: Not Applicable - Core Measures Any of the following diagnoses?: none Exam - Constitutional Vitals: Temp Pulse Resp BP Pulse Ox 98.2 F 58 L 14 104/68 100 09/01/17 07:51 09/01/17 07:51 09/01/17 07:51 09/01/17 07:51 09/01/17 07:51 General appearance: Present: no acute distress, well-nourished - EENT Eyes: Present: PERRL ENT: hearing intact, clear oral mucosa - Neck Neck: Present: supple, normal ROM - Respiratory Respiratory effort: normal Respiratory: bilateral: CTA - Cardiovascular Heart Sounds: Present: S1 & S2. Absent: rub, click - Extremities Extremities: pulses symmetrical, No edema Peripheral Pulses: within normal limits - Abdominal General gastrointestinal: Present: soft, non-tender, non-distended, normal bowel sounds Female genitourinary: Present: normal - Integumentary Integumentary: Present: clear, warm, dry - Musculoskeletal Musculoskeletal: gait normal, strength equal bilaterally - Psychiatric Psychiatric: appropriate mood/affect, intact judgment & insight - Neurologic Neurologic: CNII-XII intact, moves all extremities Plan Follow up with: PRIMARY CARE,MD [Primary Care Provider] - 3-5 Days Prescriptions: QUEtiapine [SEROquel] 100 mg PO QHS 30 Days tablet Levofloxacin [Levaquin TAB] 750 mg PO DAILY #5 tablet Prednisone [predniSONE 5 mg (6-Day Pack, 21 Tabs)] 5 mg PO .TAPER #1 tab.ds.pk
[2017-09-01] MEDS: BABY ASPIRIN PO SCH (09:35)
[2017-09-01] MEDS: LOVENOX SUB-Q SCH (09:35)
[2017-09-01] MEDS: K-DUR PO SCH (09:35)
[2017-09-01] MEDS: VITAMIN B-12 PO SCH (09:35)
[2017-09-01] MEDS: NORVASC PO SCH (09:36)
[2017-09-01] MEDS ORDERED: LEVAQUIN PO SCH (10:00)
== END 2017-09-01 15:10 | disposition home or self-care (01) | DRG 871 ==
LOC: ED 06:05 → 3A 10:39
PROVIDERS: ADMIT Internal Medicine; ATTEND Internal Medicine
DX: A41.9 Sepsis, unspecified organism (principal); G93.41 Metabolic encephalopathy; J69.0 Pneumonitis due to inhalation of food and vomit; J44.0 Chronic obstructive pulmonary disease with (acute) lower respiratory infection; E44.0 Moderate protein-calorie malnutrition; R65.10 Systemic inflammatory response syndrome (SIRS) of non-infectious origin without acute organ dysfunction; E11.9 Type 2 diabetes mellitus without complications; I11.0 Hypertensive heart disease with heart failure; I50.9 Heart failure, unspecified; E87.6 Hypokalemia; I16.0 Hypertensive urgency; M19.90 Unspecified osteoarthritis, unspecified site; J44.9 Chronic obstructive pulmonary disease, unspecified; Z95.2 Presence of prosthetic heart valve; Z95.5 Presence of coronary angioplasty implant and graft; Z90.49 Acquired absence of other specified parts of digestive tract; Z87.891 Personal history of nicotine dependence; I25.2 Old myocardial infarction; Z79.899 Other long term (current) drug therapy; Z88.0 Allergy status to penicillin; Z88.8 Allergy status to other drugs, medicaments and biological substances; Z79.4 Long term (current) use of insulin; Z79.82 Long term (current) use of aspirin; Z68.27 Body mass index [BMI] 27.0-27.9, adult
CPT/HCPCS: 36415; 70450; 71010; 80048; 80053; 80307; 81001; 82140; 82805; 82962; 85007; 85025; 85610; 87040; 87086; 93005; 93010; 94640; 96365; 96366; 96375; 99285; 99406; J1650; J1815; J1818; J1956; J2060; J3480; J7030; J7050; J7512

== ENCOUNTER 2019-02-17 19:48 | Emergency (ER) | payer OTHER ==
[~2019-02-17 19:48] MED LIST: ADRENALIN ONE
[2019-02-17] MEDS ORDERED: ADRENALIN ONE (19:50)
--- NOTE | 2019-02-17 20:03 | Emergency Department Report ---
ED CPR HPI - General Stated Complaint: CARDIAC ARREST Time Seen by Provider: 02/17/19 19:57 - History of Present Illness Initial Comments: 62-year-old female presents to ED via EMS in cardiac arrest. Per EMS, patient was helped to the bathroom by family member then became unresponsive. EMS was called. Upon EMS arrival patient in cardiac arrest and in PEA. ACLS was initiated. EMS states rhythm changed to asystole at one point. ROSC was achieved briefly, however, patient arrested again. Rhythm of PEA. Accu-Check was normal. EMS gave a total of epinephrine 5, and sodium bicarbonate 1. Upon ED arrival patient is in PEA. ACLS ongoing 50 minutes with EMS. Complaint: found unresponsive Place: home Bystander CPR Performed: Yes Shock Advised: No Initial Findings in the Field: unresponsive, no respirations, PEA ROSC in the Field: Yes (briefly) Associated Symptoms: other (unknown) Treatments Prior to Arrival: other airway device (Ricardo Tube), chest compressions, epinephrine mgs # (5), sodium bicarbonate - Related Data Home Medications Medication Instructions Recorded Confirmed Last Taken Albuterol Sulfate [Ventolin HFA] 2 puff IH Q4H PRN 07/14/17 08/30/17 Unknown Aspirin [Aspirin BABY CHEW TAB] 81 mg PO QDAY 07/14/17 08/30/17 Unknown Cyanocobalamin (Vitamin B-12) 1,000 mcg PO QDAY 07/14/17 08/30/17 Unknown [Vitamin B-12] Gabapentin [Neurontin] 300 mg PO QHS 07/14/17 08/30/17 Unknown LORazepam [Ativan] 1 mg PO QHS 07/14/17 08/30/17 Unknown Simvastatin [Zocor TAB] 10 mg PO QHS 07/14/17 08/30/17 Unknown amLODIPine [Norvasc] 5 mg PO DAILY 07/14/17 08/30/17 Unknown Beclomethasone Dipropionate [Qvar] 8.7 gm IH BID 08/30/17 08/30/17 Unknown Diphenoxylate HCl/Atropine 1 each PO QID PRN 08/30/17 08/30/17 Unknown [Diphenoxylate-Atrop 2.5-0.025] Insulin NPH Human Isophane 5 unit SQ AC 08/30/17 08/30/17 Unknown [HumuLIN N] Insulin Regular, Human [HumuLIN R] 10 unit SQ BID 08/30/17 08/30/17 Unknown Previous Rx's Medication Instructions Recorded Last Taken Type Prednisone [predniSONE 5 mg (6-Day 5 mg PO .TAPER #1 tab.ds.pk 09/01/17 Unknown Rx Pack, 21 Tabs)] QUEtiapine [SEROquel] 100 mg PO QHS 30 Days tablet 09/01/17 Unknown Rx levoFLOXacin [Levaquin TAB] 750 mg PO DAILY #5 tablet 09/01/17 Unknown Rx Allergies Allergy/AdvReac Type Severity Reaction Status Date / Time adalimumab [From Humira] Allergy Unknown Verified 08/30/17 06:31 doxycycline Allergy Unknown Verified 08/30/17 06:31 Penicillins Allergy Anaphylaxis Verified 07/13/17 17:23 ED Review of Systems ROS: Stated complaint: CARDIAC ARREST Other details as noted in HPI Comment: Unobtainable due to pts medical conditions ED Past Medical Hx - Past Medical History Hx Hypertension: Yes Hx Heart Attack/AMI: Yes Hx Congestive Heart Failure: No Hx Diabetes: Yes Hx Arthritis: Yes Hx Asthma: Yes Hx COPD: Yes Additional medical history: valve replacement iwth stent placement, Chrohns, asthma. pulmonary valve regurgitation. pulmonary nodule - Surgical History Hx Coronary Stent: Yes Hx Cholecystectomy: Yes Hx Appendectomy: Yes Additional Surgical History: Heart valve replacement with stents - Social History Smoking Status: Former Smoker - Medications Home Medications: Home Medications Medication Instructions Recorded Confirmed Last Taken Type Albuterol Sulfate [Ventolin HFA] 2 puff IH Q4H PRN 07/14/17 08/30/17 Unknown History Aspirin [Aspirin BABY CHEW TAB] 81 mg PO QDAY 07/14/17 08/30/17 Unknown History Cyanocobalamin (Vitamin B-12) 1,000 mcg PO QDAY 07/14/17 08/30/17 Unknown History [Vitamin B-12] Gabapentin [Neurontin] 300 mg PO QHS 07/14/17 08/30/17 Unknown History LORazepam [Ativan] 1 mg PO QHS 07/14/17 08/30/17 Unknown History Simvastatin [Zocor TAB] 10 mg PO QHS 07/14/17 08/30/17 Unknown History amLODIPine [Norvasc] 5 mg PO DAILY 07/14/17 08/30/17 Unknown History Beclomethasone Dipropionate [Qvar] 8.7 gm IH BID 08/30/17 08/30/17 Unknown History Diphenoxylate HCl/Atropine 1 each PO QID PRN 08/30/17 08/30/17 Unknown History [Diphenoxylate-Atrop 2.5-0.025] Insulin NPH Human Isophane 5 unit SQ AC 08/30/17 08/30/17 Unknown History [HumuLIN N] Insulin Regular, Human [HumuLIN R] 10 unit SQ BID 08/30/17 08/30/17 Unknown History Prednisone [predniSONE 5 mg (6-Day 5 mg PO .TAPER #1 tab.ds.pk 09/01/17 Unknown Rx Pack, 21 Tabs)] QUEtiapine [SEROquel] 100 mg PO QHS 30 Days tablet 09/01/17 Unknown Rx levoFLOXacin [Levaquin TAB] 750 mg PO DAILY #5 tablet 09/01/17 Unknown Rx ED Physical Exam - Head Head exam: Present: atraumatic, normocephalic - Eye Pupils: Present: other (fixed bilaterally) - ENT ENT exam: Present: other (Ricardo Tube in place) - Neck Neck exam: Present: normal inspection - Respiratory Respiratory exam: Present: normal lung sounds bilaterally, other (no spontaneous breaths) - Cardiovascular Cardiovascular Exam: Present: other (no palpable pulse) - GI/Abdominal GI/Abdominal exam: Present: soft. Absent: distended - Extremities Exam Extremities exam: Present: normal inspection - Neurological Exam Neurological exam: Present: other (GCS=3) - Skin Skin exam: Present: warm, dry, intact, normal color ED Medical Decision Making - Medical Decision Making 63-year-old female in cardiac arrest. Brief episode of ROSC in the field, however presents to ED and continue to rest. Patient already down for 50 minutes prior to ED arrival. Initial rhythm of PEA. ACLS continues here in ED. Unfortunately no ROSC here in ED. Time of was called at 19:53. Please see nurse's notes for details. Family notified. states pt had not eaten in the last 3 days, too weak to go to [facility] this morning. States pt was foaming at the mouth which is why he helped her to the bathroom. At that time, she did not look well, so 911 was called and they were instructed to administer CPR in the home. - Differential Diagnosis arrythmia, STEMI, PE Critical care attestation.: If time is entered above; I have spent that time in minutes in the direct care of this critically ill patient, excluding procedure time. ED Disposition Clinical Impression: Cardiac arrest Disposition: DC-20 Is pt being admited?: No Condition: Stable Referrals: CHUNG BLANCO MD [Primary Care Provider] - 3-5 Days Time of Disposition: 20:09
== END 2019-02-17 21:35 ==
LOC: ED 19:48
DX: I46.9 Cardiac arrest, cause unspecified (principal); I10 Essential (primary) hypertension; I25.2 Old myocardial infarction; E11.9 Type 2 diabetes mellitus without complications; M19.90 Unspecified osteoarthritis, unspecified site; J44.9 Chronic obstructive pulmonary disease, unspecified; Z95.5 Presence of coronary angioplasty implant and graft; Z90.49 Acquired absence of other specified parts of digestive tract; Z87.891 Personal history of nicotine dependence; Z79.899 Other long term (current) drug therapy; Z88.0 Allergy status to penicillin; Z88.1 Allergy status to other antibiotic agents
CPT/HCPCS: 99285; J0171